=== PATIENT | female | born 1945 | race Caucasian/White ===

== ENCOUNTER 2019-07-06 20:10 | Emergency (ER) | payer MEDICARE, OTHER, SELFPAY ==
[2019-07-06 20:17] VITALS: BP 155/76; PULSE 81; RESP 16; TEMP 36.6; O2SAT 99; BMI 28.3
--- NOTE | 2019-07-06 20:41 | ED_ITS ---
HPI - Allergic Reaction General: Chief complaint: Allergic Reaction Stated complaint: ITCHY RASH Time Seen by Provider: 07/06/19 20:40 Source: patient Mode of arrival: ambulatory Limitations: no limitations History of Present Illness: HPI narrative: Patient completed a round of antibiotics yesterday of Cipro. Patient states today she started itching all over and now has started breaking out in the rash this evening. Patient has hives noted to her upper torso. Patient appears in mild distress. Patient has no breathing difficulty. MD complaint: hives Review of Systems General: Reports: 10 or more systems reviewed and unremarkable except in HPI and below Skin/Breast: Reports: pruritus PFSH ED PFSH: Social History Smoking and tobacco status: never smoked Physical Exam Const: COMMON NORMALS: no acute distress and patient oriented x3 GENERAL APPEARANCE: cooperative HENMT: COMMON NORMALS: normocephalic, TM's normal bilaterally and Normal external nose present HEAD & SCALP: normal to inspection and normocephalic NOSE: Normal external nose present TYMPANIC MEMBRANE: TM's normal bilaterally MOUTH: Normal oral and palatal mucosa present THROAT: posterior oropharynx normal Eye: GENERAL EYE: appearance normal, both eyes and all related structures Neck/C-Spine: COMMON NORMALS: full ROM Lymph: LYMPHATIC: no lymphadenopathy noted Chest: COMMONS NORMALS: normal inspection of the chest Resp: COMMON NORMALS: normal respiratory effort EFFORT & INSPECTION: Yes able to speak in complete sentences Cardio: COMMON NORMALS: regular rate and regular rhythm RATE: regular rate RHYTHM: regular rhythm GI: COMMON NORMALS: non-tender : COMMON NORMALS: Yes no CVA tenderness BLADDER/KIDNEY EXAM: Yes no CVA tenderness Back/Pelvis: COMMON NORMALS: no CVA tenderness and thoracic and lumbar spine normal to inspection Extremity: COMMON NORMALS: normal to inspection Neuro: COMMON NORMALS: patient oriented x3 and moves all extremities Psych: COMMON NORMALS: mental status grossly normal and cooperative Skin: RASHES: rashes noted (Patient has hives to the torso.) Course Vital Signs: Vital signs: Vital Signs Temperature 97.9 F 07/06/19 20:17 Pulse Rate 81 07/06/19 20:17 Respiratory Rate 16 07/06/19 20:17 Blood Pressure 155/76 07/06/19 20:17 Pulse Oximetry 99 07/06/19 20:17 MDM - Allergic Reaction MDM Narrative: Medical decision making narrative: Patient comes in today for complaints of itchy rash. On exam patient has urticaria to the torso. Respirations are even lungs are clear to auscultation. Vital signs were normal. Differential diagnosis includes anaphylaxis, allergic reaction, adverse drug effect. Patient was given Solu-Medrol and Benadryl with good results in the ER. Patient was monitored and showed continued improvement. Patient will be continued on steroids and cetirizine for control of symptoms for the next 3 to 5 days. Encourage plenty of fluids follow-up with primary care or return to the ER for worsening symptoms. Patient reported understanding. Discharge Plan Discharge Patient Disposition: Home, Self-Care Clinical Impression: Allergic reaction Qualifiers: Encounter type: initial encounter Qualified Code(s): T78.40XA - Allergy, unspecified, initial encounter Adverse reaction to drug Qualifiers: Encounter type: initial encounter Qualified Code(s): T50.905A - Adverse effect of unspecified drugs, medicaments and biological substances, initial encounter Condition: Stable Prescriptions: New cetirizine 5 mg tablet 5 mg PO BID Qty: 20 RF: 0 prednisone 20 mg tablet 40 mg PO DAILY Qty: 10 RF: 0 No Action losartan 100 mg tablet RF: 0 Synthroid 100 mcg tablet RF: 0 clobetasol 0.05 % cream TOPICAL RF: 0 Referrals: David Resendiz MD [Primary Care Provider] - Discharge Diet: Usual diet Discharge Activity: Increase activity as tolerated Patient Instructions: Antibiotic Medication Allergy (ED) Activity Restrictions/Additional Instructions: Drink plenty of water with medication. Activity as tolerated. Take cetirizine and prednisone as directed. Use Benadryl for breakthrough itching or rash. Follow-up with primary care in 1 week for recheck. Return to the ER for vomiting, difficulty breathing, or new concerns. Coding Level of Care Code ED Recycling Manager for [place] Exam Comprehensive
[2019-07-06] MEDS: diphenhydrAMINE 50 mg/mL SDV 1mL IM (21:06)
[2019-07-06 22:32] VITALS: BP 121/54; PULSE 71; RESP 16; O2SAT 97
== END 2019-07-06 22:35 | disposition home or self-care (01) ==
PROVIDERS: Emergency Provider Nurse Practitioner Family; Family Provider Family Medicine; PCP Family Medicine
DX: T78.40XA Allergy, unspecified, initial encounter (principal); T50.905A Adverse effect of unspecified drugs, medicaments and biological substances, initial encounter
CPT/HCPCS: 12345; 96372; 99281; 99283; J1200; J2930

== ENCOUNTER 2019-07-09 16:03 | Outpatient (CLI) | payer MEDICARE, OTHER, BC, SELFPAY ==
--- NOTE | 2019-07-09 16:15 | XR_ITS ---
WS: [id number] SCREENING DEXA SCAN THEVA CLINICAL INFORMATION: OSTEOPOROSIS COMPARISON: June 05, 2017 FINDINGS: The L1-L4 bone mineral density measures 1.239 g/cm2. This corresponds to a T score score of 0.5 and Z score of 2.0. Left femoral neck bone mineral density measures 0.874 g/cm2. This corresponds to a T score of -1.1 an d Z score of 0.6. Right femoral neck bone mineral density measures 0.913 g/cm2. This corresponds to a T score -0.8of an d Z score of 0.9. Mean femoral neck bone mineral density measures 0.894 g/cm2. This corresponds to a T score of -0.9 an d Z score of 0.7. XR/XR DEXA axial skeleton* [id number] IMPRESSION: Osteopenia in the femoral necks. Normal bone mineralization lumbar spine. Patient's FRAX calculated 10 year probability for major osteoporotic fracture i s 15.4 % and osteoporotic hip fracture is 4.6%. Bone mineral density in the lumbar spine has increased 1.2% since and decreased -1.9% in the femoral necks since 2017
== END 2019-07-09 16:04 | disposition home or self-care (01) ==
PROVIDERS: Family Provider Family Medicine; PCP Family Medicine; Visit Provider Family Medicine
DX: M81.0 Age-related osteoporosis without current pathological fracture (principal); M85.89 Other specified disorders of bone density and structure, multiple sites
CPT/HCPCS: 77080

== ENCOUNTER → 2019-08-19 13:28 | Outpatient (BNVA) | payer MEDICARE, OTHER, SELFPAY | PROVIDERS: Family Provider Family Medicine; PCP Family Medicine; Visit Provider Nurse Practitioner Family | DX: N30.20 Other chronic cystitis without hematuria (principal) | CPT/HCPCS: 81001 ==

== ENCOUNTER 2020-02-29 02:54 | Emergency (ER) | payer MEDICARE, OTHER, SELFPAY ==
[2020-02-29] VITALS (48 sets, daily range): BP systolic 94–165; BP diastolic 43–91; PULSE 47–91; RESP 13–37; TEMP 36.7; O2SAT 94–100; BMI 29.4
--- NOTE | 2020-02-29 03:28 | XRR_ITS ---
PROCEDURE INFORMATION: Exam: XR Chest, 1 View Exam date and time: 02/29/2020 3:30 AM Age: 74 years old Clinical indication: Chest wall pain; Prior surgery; Surgery type: Mastectomy; Patient HX: Right posterior chest and shoulder pain. ; Additional info: R side pain TECHNIQUE: Imaging protocol: XR of the chest Views: 1 view. COMPARISON: No relevant prior studies available. FINDINGS: Lungs: Unremarkable. No consolidation. Pleural space: Unremarkable. No pleural effusion. No pneumothorax. Heart/Mediastinum: Unremarkable. No cardiomegaly. Bones/joints: Unremarkable. XR/XR chest 1V portable [id number] IMPRESSION: No acute findings.
--- NOTE | 2020-02-29 03:29 | ECG_ITS ---
[facility] Test Date: 2020-02-29 Pat Name: Anish Dockery Department: Room: Gender: Female Roving Frame Tender: : 1945 Requested By: Jared Ibarra Order Number: [id number] Araceli MD: Mima Norton M.D. Measurements Intervals [place] Rate: 68 P: 95 AR: 151 QRS: -11 QRSD: 109 T: 48 QT: 397 QTc: 423 Interpretive Statements SINUS RHYTHM MINIMAL VOLTAGE CRITERIA FOR LVH, CONSIDER NORMAL VARIANT [MEETS CRITERIA IN ONE OF: R(aVL), S(V1), R(V5), R(V5/V6)+S(V1)] No previous ECG available for comparison Electronically Signed On 03-01-2020 9:16:47 LITHOGRAPHIC PLATE MAKER by Mima Norton M.D. [id number]
--- NOTE | 2020-02-29 03:29 | W.ED.EXTPRO ---
HPI - Extremity Problem General: Chief complaint: Extremity Problem,Nontraumatic Stated complaint: severe right shoulder pain Time Seen by Provider: 02/29/20 03:10 History of Present Illness: HPI Narrative: 74-year-old female presenting with right shoulder pain worsening over about a week. She says the pain comes and goes, but episodes are becoming more severe and more frequent. She says that she did not injure her shoulder in any way. Movement does not make the pain worse. Nothing she has tried is made it better. She is not short of breath. Not coughing. No fever. MD Complaint: extremity pain Onset (ago): day(s) Pain Consistency: intermittent Location: right and upper extremity Quality: stabbing and aching Radiation: none Relieving factors: nothing Exacerbating factors: nothing Associated symptoms: Reports chest pain; Deny fever(s) or rash Review of Systems Const: Denies: fever(s), chills or body aches ENMT: Denies: throat pain, hoarseness or nasal congestion Card: Reports: chest pain; Denies: palpitations or irregular heart rhythm Resp: Denies: dyspnea, productive cough, non-productive cough or wheezing GI: Reports: nausea; Denies: abdominal pain, vomiting or hematemesis : Denies: difficulty voiding or urinary urgency Musc: Reports: extremity pain; Denies: neck pain or back pain Skin/Breast: Reports: pruritus; Denies: rash, erythema or skin tenderness Neuro: Denies: numbness in extremities or weakness in extremities Psych: Reports: anxiety Endo: Denies: polyuria or excessive sweating PFS ED PFSH: Medical History (Updated 02/29/20 @ 05:58 by Jared Crawford DO) Breast cancer Chronic cystitis HTN (hypertension) Recurrent UTI Thyroid disorder Surgical History Hx of appendectomy Hx of bilateral mastectomy Hx of cholecystectomy Hx of thyroidectomy Family History Mother Diabetes Father CAD (coronary artery disease) Other Cancer Social History Smoking and tobacco status: never smoked Alcohol intake: never Adopted: No Caregiver/support person: No Lives independently: No Household members: spouse Marital status: Current occupational status: retired History of recent travel: No Physical Exam Const: COMMON NORMALS: patient oriented x3 and well nourished Eye: COMMON NORMALS: Equal, round and reactive pupils present and EOMs intact bilaterally PUPIL: Yes Equal, round and reactive pupils present Chest: COMMONS NORMALS: normal inspection of the chest Resp: COMMON NORMALS: normal respiratory effort, No retractions, No use of accessory muscles, clear to auscultation bilaterally and percussion normal AUSCULTATION: clear to auscultation bilaterally PERCUSSION: percussion normal Cardio: COMMON NORMALS: regular rate and regular rhythm RATE: regular rate RHYTHM: regular rhythm Extremity: COMMON NORMALS: normal to inspection NARRATIVE EXTREMITY EXAM: Examined shoulder on the right reveals flexion 140 degrees, abduction to 130 degrees. These are painless. Empty can test is negative. Full can test is negative. [place]'s test is negative. There is minimal tenderness to palpation over the suprascapular nerve, no joint line or cuff footprint tenderness. Neuro: COMMON NORMALS: patient oriented x3 Course Vital Signs: Vital signs: Vital Signs Temperature 98.1 F 02/29/20 03:02 Pulse Rate 63 02/29/20 06:05 Respiratory Rate 17 02/29/20 06:05 Blood Pressure 128/91 02/29/20 06:05 Pulse Oximetry 100 02/29/20 06:05 MDM - Extremity (Nontraumatic) MDM Narrative: Medical decision making narrative: 74-year-old lady with nonreproducible right-sided shoulder/scapular pain. She does not have a cough, is not short of breath, does not have a fever. Her white blood cell count is 5.7. Hemoglobin 13.1. EKG shows a normal sinus rhythm with a normal axis rate of 65. Second EKG is the same. Electrolytes are normal. Troponin is 9. Her D-dimer is significantly elevated at 1300. CTA of the chest is pending. X-ray was read as normal. She had a period of bradycardia and hypotension directly following administration of 0.5 mg of Dilaudid. She is recovered from this. She does have some mild nausea that remains. Lab Data: Labs: Lab Results 02/29/20 02/29/20 02/29/20 Range/Units 03:35 03:41 03:41 WBC 5.7 (4.0-10.0) 10^3/ uL RBC 4.35 (4.1-5.3) 10^6/u L Hgb 13.1 (11.5-15.3) g/dL Hct 40.7 (37.0-47.0) % MCV 93.6 (81-99) fL MCH 30.1 (28.0-34.0) pg MCHC 32.2 (30.0-36.0) g/dL RDW 13.2 (12.1-15.1) % Plt Count 185 (130-400) 10^3/c mm MPV 10.6 H (7.4-10.4) fL Neut % (Auto) 45.2 % Lymph % (Auto) 40.0 % [place] % (Auto) 11.9 % Eos % (Auto) 2.4 % Baso % (Auto) 0.2 % Neut # (Auto) 2.59 (1.8-7.7) 10^3/u L Lymph # (Auto) 2.3 (0.8-4.8) 10^3/u L [place] # (Auto) 0.7 (0.2-0.9) 10^3/u L Eos # (Auto) 0.1 (0.0-0.8) 10^3/u L Baso # (Auto) 0.0 (0.0-0.1) 10^3/u L Nucleated RBC % (a uto) 0 % Nucleated RBCs # 0.0 /100WBC D-Dimer 1.35 H (0-0.59) ug/mIFE U Sodium (136-145) mmol/L Potassium (3.5-5.1) mmol/L Chloride (98-107) mmol/L Carbon Dioxide (22-29) mmol/L Anion Gap (5-19) BUN (8-23) mg/dL Creatinine (0.5-0.9) mg/dL GFR Calculation Glucose (65-115) mg/dL Calculated Osmolal ity (285-295) mOsm/k g Calcium (8.5-10.5) mg/dL Total Bilirubin (0.15-1.2) mg/dL AST (0-32) U/L ALT (0-33) U/L Alkaline Phosphata se (35-105) IU/L Creatine Kinase (26-192) U/L Troponin T Baselin e (0-10) ng/L Troponin T 120 Min hughes (0-10) ng/L Delta Troponin T (0-10) ABS# C-Reactive Protein (0.0-4.9) mg/L Total Protein (6.6-8.7) g/dL Albumin (3.5-5.2) g/dL Globulin (1.3-4.6) g/dL Lipase (13-60) U/L Procalcitonin (0-0.5) ng/mL Urine Color Yellow (Yellow) Urine Appearance Clear (CLEAR) Urine pH 7 (5-7) Ur Specific Gravit y 1.005 (1.005-1.030) Urine Protein Neg (Negative) Urine Glucose (UA) Norm (Normal) Urine Ketones Negative (Negative) Urine Blood Neg (Negative) Urine Nitrate Negative (Negative) Urine Bilirubin Neg (Negative) Urine Urobilinogen Norm (Negative) mg/dL Ur Leukocyte Stephanie ase Negative (Negative) 02/29/20 02/29/20 02/29/20 Range/Units 03:41 03:41 05:35 WBC (4.0-10.0) 10^3/ uL RBC (4.1-5.3) 10^6/u L Hgb (11.5-15.3) g/dL Hct (37.0-47.0) % MCV (81-99) fL MCH (28.0-34.0) pg MCHC (30.0-36.0) g/dL RDW (12.1-15.1) % Plt Count (130-400) 10^3/c mm MPV (7.4-10.4) fL Neut % (Auto) % Lymph % (Auto) % [place] % (Auto) % Eos % (Auto) % Baso % (Auto) % Neut # (Auto) (1.8-7.7) 10^3/u L Lymph # (Auto) (0.8-4.8) 10^3/u L [place] # (Auto) (0.2-0.9) 10^3/u L Eos # (Auto) (0.0-0.8) 10^3/u L Baso # (Auto) (0.0-0.1) 10^3/u L Nucleated RBC % (a uto) % Nucleated RBCs # /100WBC D-Dimer (0-0.59) ug/mIFE U Sodium 138 (136-145) mmol/L Potassium 3.5 (3.5-5.1) mmol/L Chloride 105 (98-107) mmol/L Carbon Dioxide 24 (22-29) mmol/L Anion Gap 12.5 (5-19) BUN 17 (8-23) mg/dL Creatinine 0.8 (0.5-0.9) mg/dL GFR Calculation Not Reportable Glucose 114 (65-115) mg/dL Calculated Osmolal ity 288 (285-295) mOsm/k g Calcium 9.0 (8.5-10.5) mg/dL Total Bilirubin 1.1 (0.15-1.2) mg/dL AST 25 (0-32) U/L ALT 18 (0-33) U/L Alkaline Phosphata se 93 (35-105) IU/L Creatine Kinase 40 (26-192) U/L Troponin T Baselin e 9 (0-10) ng/L Troponin T 120 Min hughes 8.41 (0-10) ng/L Delta Troponin T -0.59 L (0-10) ABS# C-Reactive Protein 0.6 (0.0-4.9) mg/L Total Protein 6.7 (6.6-8.7) g/dL Albumin 3.7 (3.5-5.2) g/dL Globulin 3.0 (1.3-4.6) g/dL Lipase 28 (13-60) U/L Procalcitonin 0.04 (0-0.5) ng/mL Urine Color (Yellow) Urine Appearance (CLEAR) Urine pH (5-7) Ur Specific Gravit y (1.005-1.030) Urine Protein (Negative) Urine Glucose (UA) (Normal) Urine Ketones (Negative) Urine Blood (Negative) Urine Nitrate (Negative) Urine Bilirubin (Negative) Urine Urobilinogen (Negative) mg/dL Ur Leukocyte Stephanie ase (Negative) Discharge Plan Discharge Patient Disposition: Home Clinical Impression: Acute pain of right shoulder Condition: Stable Prescriptions: [place] 5-325 mg tablet 1 tab PO Q6H Qty: 10 RF: 0 Medrol (Mike) 4 mg tablets,dose pack See Rx Instructions .ROUTE .COMPLEX Qty: 21 RF: 0 No Action cholecalciferol (vitamin D3) 50 mcg (2,000 unit) capsule 50 mcg PO DAILY RF: 0 hydrochlorothiazide 12.5 mg tablet 12.5 mg PO DAILY RF: 0 cefuroxime axetil 500 mg tablet 500 mg PO BID Qty: 28 RF: 3 losartan 100 mg tablet RF: 0 Synthroid 100 mcg tablet RF: 0 clobetasol 0.05 % cream TOPICAL RF: 0 cetirizine 5 mg tablet 5 mg PO BID Qty: 20 RF: 0 Discharge Orders: Discharge ED (Routine); Ordered 02/29/20 Ordered By: Jared Crawford Referrals: David Resendiz MD [Primary Care Provider] - 4-7 days Discharge Diet: Advance as tolerated Discharge Activity: Increase activity as tolerated Patient Instructions: Shoulder Sprain (ED), Arthralgia (ED) Activity Restrictions/Additional Instructions: Return for worsening pain despite treatment, shortness of breath, cough, fever greater than 100, other concerning symptoms. Coding Level of Care Code ED Business Banking Sales Assistant for Chg Fwd Exam Detailed
[2020-02-29 03:47] LABS: Basophils % 0.2 %; Eosinophils # 0.1 10^3/uL (0.0-0.8); Eosinophils % 2.4 %; Hematocrit 40.7 % (37.0-47.0); Hemoglobin 13.1 g/dL (11.5-15.3); Lymphocytes # 2.3 10^3/uL (0.8-4.8); Mean Corpuscular HGB Conc 32.2 g/dL (30.0-36.0); Mean Corpuscular Hemoglobin 30.1 pg (28.0-34.0); Mean Corpuscular Volume 93.6 fL (81-99); Mean Platelet Volume 10.6 fL (7.4-10.4); Monocytes # 0.7 10^3/uL (0.2-0.9); Monocytes % 11.9 %; Neutrophils # 2.59 10^3/uL (1.8-7.7); Neutrophils % 45.2 %; Nucleated Red Blood Cells % 0 %; Platelet Count 185 10^3/cmm (130-400); Red Blood Count 4.35 10^6/uL (4.1-5.3); Red Cell Distribution Width 13.2 % (12.1-15.1); White Blood Count 5.7 10^3/uL (4.0-10.0)
[2020-02-29 04:01] LABS: D Dimer 1.35 ug/mIFEU (0-0.59)
[2020-02-29 04:10] LABS: Troponin(5th) Baseline 9 ng/L (0-10)
[2020-02-29 04:17] LABS: Procalcitonin 0.04 ng/mL (0-0.5)
[2020-02-29 04:18] LABS: Add Urine Microscopic? NO
[2020-02-29] MEDS: HYDROmorphone 1 mg/mL INJ 1 mL 0.5 MG IVP (04:26)
[2020-02-29] MEDS: ondansetron 2 mg/ML SDV 2 mL 4 MG IVP ×2 (04:26→05:50)
[2020-02-29 04:29] LABS: Alanine Aminotransferase 18 U/L (0-33); Albumin Level 3.7 g/dL (3.5-5.2); Alkaline Phosphatase 93 IU/L (35-105); Anion Gap 12.5 (5-19); Aspartate Amino Transferase 25 U/L (0-32); Blood Urea Nitrogen 17 mg/dL (8-23); C Reactive Protein 0.6 mg/L (0.0-4.9); Carbon Dioxide 24 mmol/L (22-29); Chloride 105 mmol/L (98-107); Creatine Phosphokinase 40 U/L (26-192); Glucose 114 mg/dL (65-115); Lipase 28 U/L (13-60); Osmolality Calculated 288 mOsm/kg (285-295); Potassium 3.5 mmol/L (3.5-5.1); Sodium 138 mmol/L (136-145); Total Bilirubin 1.1 mg/dL (0.15-1.2); Total Protein 6.7 g/dL (6.6-8.7)
[2020-02-29 04:34] LABS: Bilirubin Urine Neg (Negative); Blood Urine Neg (Negative); Glucose Urine UA Norm (Normal); Ketones Urine Negative (Negative); Leukocyte Esterase Urine Negative (Negative); Nitrate Urine Negative (Negative); Protein Urine Neg (Negative); Specific Gravity, Urine 1.005 (1.005-1.030); Urine Appearance Clear (CLEAR); Urine Color Yellow (Yellow); Urobilinogen Urine Norm (Negative); pH Urine 7 (5-7)
[2020-02-29] MEDS: sodium chloride 0.9% 1,000 ML 999 ML IV (04:40)
--- NOTE | 2020-02-29 04:45 | PC.NURSE ---
Dilaudid mixed with 10 ml NS pushed over 4-5 minutes. Pt began to hyperventilate 2-3 minutes post administration. Pt very anxious. Reported feeling very weak in the legs. Pt became bradycardic at that time jessica to 47 beats/min. Pt BP 94/43. Dr riggs notified. Pt placed in trendelenburg. NS bolus started. Cool compress provided. VS now heart rate 66 NSR, BP 130/56, res 28, pulse ox 100 RA. Pt alert, reports decrease in anxiety at this time. Pt bed in normal position with head slightly elevated.
--- NOTE | 2020-02-29 04:56 | CTR_ITS ---
PROCEDURE INFORMATION: Exam: CT Angiography Chest With Contrast Exam date and time: 02/29/2020 4:57 AM Age: 74 years old Clinical indication: Chest wall pain; Prior surgery; Surgery type: Thyroidectomy. Mastectomy. Gallbladder. ; Patient HX: RT posterior chest and shoulder pain. ; Additional info: Chest pain TECHNIQUE: Imaging protocol: Computed tomographic angiography of the chest with intravenous contrast. 3D rendering (Not supervised by radiologist): MIP and/or 3D reconstructed images were created by the technologist. Radiation optimization: All CT scans at this facility use at least one of these dose optimization techniques: automated exposure control; mA and/or kV adjustment per patient size (includes targeted exams where dose is matched to clinical indication); or iterative reconstruction. Contrast material: OMNI 350; Contrast volume: 71 ml; Contrast route: INTRAVENOUS (IV); COMPARISON: CR XR chest 1V portable [id number] 02/29/2020 3:33 AM RADIATION DOSE METRICS: Total DLP (mGy-cm): 548.13 FINDINGS: Pulmonary arteries: No central pulmonary embolus. Streak artifacts from dense venous contrast through the right upper lobe central pulmonary arteries, but no suggestion of a segmental or subsegmental embolus. Aorta: Atherosclerosis. No aortic aneurysm or suggestion of dissection. Lungs: Calcified granulomata in the lungs. No ground-glass opacities or consolidation. Pleural space: No pleural fluid or pneumothorax. Heart: Cardiac prominence. No pericardial effusion. Mediastinal space: Small hiatal hernia. Lymph nodes: Borderline size of 1 mediastinal node. No enlarged nodes elsewhere. Liver: 5 mm low-density focus in the superior margin of the dome of the liver, too small for characterization. Gallbladder and bile ducts: Absence of the gallbladder likely accounting for the mild biliary ductal prominence. Stomach and bowel: Several diverticula of the splenic flexure. Bones/joints: Old compression fractures. Degeneration of several discs. Soft tissues: Bilateral mastectomies. CT/CT angio chest PE protcl [id number] IMPRESSION: 1. No apparent pulmonary embolus. 2. Bilateral mastectomies. Small hiatal hernia. Other findings detailed above. Radiation Dose CTDIVOL = (mGy): DLP = 548.13 (mGy-cm)
[2020-02-29] MEDS: iohexol 350 mg/mL 100 mL Btl IV (05:20)
--- NOTE | 2020-02-29 05:29 | ECG_ITS ---
[facility] Test Date: 2020-02-29 Pat Name: Anish Dockery Department: Room: Gender: Female Break Out Man: : 1945 Requested By: Jared Ibarra Order Number: [id number] Araceli MD: Mima Norton M.D. Measurements Intervals [place] Rate: 75 P: 91 AL: 171 QRS: -8 QRSD: 99 T: 41 QT: 402 QTc: 451 Interpretive Statements SINUS RHYTHM Compared to ECG 02/29/2020 03:24:35 No significant changes Electronically Signed On 03-01-2020 20:26:44 WIRELESS NETWORK ENGINEER by Mima Norton M.D. [id number]
[2020-02-29] MEDS: ketorolac 30 mg/mL INJ 15 MG IVP (06:22)
[2020-02-29 06:23] LABS: Troponin 5 2HR 8.41 ng/L (0-10)
[2020-02-29 06:24] LABS: Troponin 5 2HR Delta -0.59 ABS# (0-10)
== END 2020-02-29 06:58 | disposition home or self-care (01) ==
PROVIDERS: Emergency Provider Emergency Medicine; PCP Family Medicine
DX: M25.511 Pain in right shoulder (principal); Z85.3 Personal history of malignant neoplasm of breast; I10 Essential (primary) hypertension; E07.9 Disorder of thyroid, unspecified
CPT/HCPCS: 12345; 71045; 71275; 80053; 81003; 82550; 83690; 84145; 84484; 85025; 85378; 86140; 93005; 96361; 96374; 96375; 96376; 99284; J1170; J1885; J2405; J7030; Q9967

== ENCOUNTER 2020-05-11 13:11 | Emergency (ER) | payer MEDICARE, OTHER, SELFPAY ==
[2020-05-11 13:17] VITALS: BP 156/85; PULSE 96; RESP 32; TEMP 36.6; O2SAT 98; BMI 28.3
[2020-05-11 13:49] LABS: ABG PCO2 22.3 mmHg (35-45); Alveolar-Arterial Oxygen Gradi 9.7 mmHg (5-10); Arterial Blood Gas Hematocrit 43.1 % (37-47); Base Excess ABG 1.7 mmol/L (-2.0-2.0); Blood Gas Allen Test Pos; Blood Gas Operator Identificat CAK; Blood Gas Sample Site Radial, left; Blood Gas Sample Type Arterial; Carboxyhemoglobin 0.7 %THgb (0.4-20.1); HCO3 ABG 21.5 mmol/L (22-26); HGB O2 Sat 90.8 % (95-100); Ionized Calcium Level - ABG 1.2 mmol/L (1.1-1.4); Methemoglobin 0.7 % (0.4-1.5); Oxygen Device ROOM AIR; Oxygen Saturation ABG 92.1; PO2 ABG 46.8 mmHg (80.0-100.0)
--- NOTE | 2020-05-11 13:51 | CT_ITS ---
WS: [id number] CT HEAD NONCONTRAST HISTORY: dizziness TECHNIQUE: Contiguous axial imaging performed through the brain in 2.5 mm imaging. Bone and soft tiss ue windows. Sagittal and coronal reformats reviewed. All CT scans at [facility] use at ast one of these dose optimization techniques: automated exposure control; mA and/or kV adjustment pe r patient size (includes targeted exams where dose is matched to clinical indication); or iterative r econstruction. DLP: 393.22 mGy.cm COMPARISON: 09/10/2010 Quality of examination is limited due to severe kyphosis of the patient. No large areas of hemorrhage or edema. Small extra-axial hematomas would be obscured. Mild atrophy and mild chronic microvascular ischemic disease. Ventricles: Normal size with no hydrocephalus. Paranasal sinuses: As visualized are clear. Mastoid air cells: Well pneumatized. Calvarium and scalp: Skull is intact with no soft tissue edema or swelling. CT/CT head wo con* [id number] IMPRESSION: 1. Quality of this examination is limited by kyphosis. No acute intracranial h emorrhage. 2. Mild atrophy.
--- NOTE | 2020-05-11 13:52 | ECG_ITS ---
[facility] Test Date: 2020-05-11 Pat Name: Anish Dockery Department: Room: Gender: Female Tester Electronic Scale: : 1945 Requested By: Vin Colon Order Number: [id number] Araceli MD: Nicolas Romero M.D. Measurements Intervals [place] Rate: 72 P: 76 PA: 166 QRS: 7 QRSD: 98 T: 47 QT: 398 QTc: 437 Interpretive Statements SINUS RHYTHM Compared to ECG 02/29/2020 05:39:39 No significant changes Electronically Signed On 05-11-2020 19:13:49 CDT by Nicolas Romero M.D. [id number]
--- NOTE | 2020-05-11 13:55 | W.ED.NEUROSD ---
HPI - Neuro Symptoms/Deficit General: Chief Complaint: Neuro Symptoms/Deficit Stated Complaint: HAND NUMBNESS/ shaky Time Seen by Provider: 05/11/20 13:27 History of Present Illness: HPI Narrative: 75-year-old female who comes in complaining of numbness bilaterally in the hands and shaking. She was driving it began to get these symptoms she has a history of anxiety she is tachypneic when I arrived in the room is also complaining of dizziness. She denies any chest pain. She has a difficult time relating her story due to her tachypnea. She states she is anxious because there is some health issues in her family particular with her . Onset (ago): minute(s) Location: left arm and right arm Severity: mild Quality: tingling Relieving factors: none Exacerbating factors: none Context: sudden onset On Anticoagulants: No Associated symptoms: Reports nausea, short of breath and tingling; Deny chest pain or malaise Treatments Prior to Arrival: none Review of Systems Const: Denies: fever(s), chills, body aches, change in appetite, fatigue or malaise ENMT: Denies: throat pain, ear or mastoid pain, nasal discharge or nasal congestion Card: Denies: chest pain, edema, dyspnea on exertion or orthopnea Resp: Denies: dyspnea, productive cough or non-productive cough GI: Reports: nausea : Denies: flank pain, difficulty voiding, dysuria, urinary frequency or urinary urgency Skin/Breast: Denies: rash or pruritus PFSH ED PFSH: Medical History (Updated 05/11/20 @ 16:10 by Vin Alvares DO) Breast cancer Chronic cystitis HTN (hypertension) Recurrent UTI Thyroid disorder Surgical History Hx of appendectomy Hx of bilateral mastectomy Hx of cholecystectomy Hx of thyroidectomy Family History Mother Diabetes Father CAD (coronary artery disease) Other Cancer Social History Smoking and tobacco status: never smoked Alcohol intake: never Adopted: No Caregiver/support person: No Lives independently: No Household members: spouse Marital status: Current occupational status: retired History of recent travel: No Physical Exam Const: COMMON NORMALS: no acute distress GENERAL APPEARANCE: cooperative ORIENTATION/CONSCIOUSNESS: Yes awake, Yes oriented to person, Yes oriented to place and Yes oriented to time HENMT: COMMON NORMALS: normocephalic, atraumatic, hearing grossly normal bilaterally, external ears normal, EAC's normal, TM's normal bilaterally, Normal nasal mucous membranes and turbinates present, moist oral mucous membranes and oropharynx normal HEAD & SCALP: normocephalic and atraumatic NOSE: Normal nasal mucous membranes and turbinates present EXTERNAL EAR: Yes external ears normal EXTERNAL AUDITORY CANAL: EAC's normal TYMPANIC MEMBRANE: TM's normal bilaterally Eye: COMMON NORMALS: Equal, round and reactive pupils present, EOMs intact bilaterally, conjunctivae normal and no scleral icterus CONJUNCTIVA: Yes conjunctivae normal PUPIL: Yes Equal, round and reactive pupils present Neck/C-Spine: COMMON NORMALS: full ROM, no lymphadenopathy, supple and no JVD Lymph: LYMPHATIC: no lymphadenopathy noted and no lymphedema noted Resp: COMMON NORMALS: No retractions, No use of accessory muscles and clear to auscultation bilaterally EFFORT & INSPECTION: Yes tachypneic AUSCULTATION: clear to auscultation bilaterally Cardio: COMMON NORMALS: no JVD, regular rate, regular rhythm and No murmurs present (Cardio) RATE: regular rate RHYTHM: regular rhythm GI: COMMON NORMALS: Soft to palpation and No hepatosplenomegaly present AUSCULTATION: Yes normoactive bowel sounds PALPATION: Yes Soft to palpation, No Tenderness to palpation present (GI), No Guarding due to palpation present (GI) and Yes No hepatosplenomegaly present Extremity: COMMON NORMALS: normal to inspection, capillary refill normal, no clubbing, cyanosis or edema, no calf tenderness and no pedal edema Neuro: SENSORIUM/ORIENTATION: Yes oriented to person, Yes oriented to place and Yes oriented to time Psych: SPEECH: Yes rapid MOOD & AFFECT: Yes anxious Skin: COMMON NORMALS: no rashes or lesions noted GENERAL SKIN EXAM: no rashes or lesions noted Course Vital Signs: Vital signs: Vital Signs Temperature 97.9 F 05/11/20 13:17 Pulse Rate 76 05/11/20 16:57 Respiratory Rate 27 H 05/11/20 16:57 Blood Pressure 136/86 05/11/20 16:57 Pulse Oximetry 97 05/11/20 16:57 MDM - Neuro Symptoms/Deficit MDM Narrative: Medical decision making narrative: Patient was hyperventilating significantly when she came in see his blood gas. We will ahead and discharge her home gave her hydroxyzine to use as needed all her symptoms have resolved at this point. Lab Data: Attestation: I reviewed the patient's lab results. Labs: Lab Results 05/11/20 05/11/20 05/11/20 Range/Units 13:37 14:42 14:42 WBC 5.8 (4.0-10.0) 10^3/ uL RBC 4.26 (4.1-5.3) 10^6/u L Hgb 12.9 (11.5-15.3) g/dL Hct 41.3 (37.0-47.0) % MCV 96.9 (81-99) fL MCH 30.3 (28.0-34.0) pg MCHC 31.2 (30.0-36.0) g/dL RDW 13.1 (12.1-15.1) % Plt Count 174 (130-400) 10^3/c mm MPV 10.5 H (7.4-10.4) fL Neut % (Auto) 65.8 % Lymph % (Auto) 22.3 % Bollinger % (Auto) 10.4 % Eos % (Auto) 1.0 % Baso % (Auto) 0.3 % Neut # (Auto) 3.80 (1.8-7.7) 10^3/u L Lymph # (Auto) 1.3 (0.8-4.8) 10^3/u L Bollinger # (Auto) 0.6 (0.2-0.9) 10^3/u L Eos # (Auto) 0.1 (0.0-0.8) 10^3/u L Baso # (Auto) 0.0 (0.0-0.1) 10^3/u L Nucleated RBC % (a uto) 0 % Nucleated RBCs # 0.0 /100WBC Specimen Type Arterial Sample Site Radial, left ABG pH 7.59 H* (7.35-7.45) ABG pCO2 22.3 L (35-45) mmHg ABG pO2 46.8 L (80.0-100.0) mmH g ABG HCO3 21.5 L (22-26) mmol/L ABG O2 Saturation 92.1 ABG Base Excess 1.7 (-2.0-2.0) mmol/ L Trey Test Pos A-a O2 Gradient 9.7 (5-10) mmHg Hematocrit 43.1 (37-47) % Hgb O2 Saturation 90.8 L (95-100) % Carboxyhemoglobin 0.7 (0.4-20.1) %THgb Methemoglobin 0.7 (0.4-1.5) % Total Hemoglobin 14.0 (12-16) g/dL Sodium 139.0 138 (131-143) mmol/L Potassium 3.0 L 3.0 L (3.5-5.0) mmol/L Glucose 118.0 H 117 H (70-115) mg/dL Ionized Calcium 1.2 (1.1-1.4) mmol/L O2 Delivery Device Room air FiO2 21.0 % Manager Sterile ID Cak Chloride 102 (98-107) mmol/L Carbon Dioxide 23 (22-29) mmol/L Anion Gap 16.0 (5-19) BUN 14 (8-23) mg/dL Creatinine 0.8 (0.5-0.9) mg/dL GFR Calculation Not Reportable Calculated Osmolal ity 288 (285-295) mOsm/k g Calcium 9.0 (8.5-10.5) mg/dL Total Bilirubin 1.1 (0.15-1.2) mg/dL AST 19 (0-32) U/L ALT 14 (0-33) U/L Alkaline Phosphata se 80 (35-105) IU/L Troponin T Baselin e (0-10) ng/L Total Protein 6.8 (6.6-8.7) g/dL Albumin 3.6 (3.5-5.2) g/dL Globulin 3.2 (1.3-4.6) g/dL Urine Color (Yellow) Urine Appearance (CLEAR) Urine pH (5-7) Ur Specific Gravit y (1.005-1.030) Urine Protein (Negative) Urine Glucose (UA) (Normal) Urine Ketones (Negative) Urine Blood (Negative) Urine Nitrate (Negative) Urine Bilirubin (Negative) Prot Sulfosalicyli c Acd (Negative) Urine Urobilinogen (Negative) mg/dL Ur Leukocyte Stephanie ase (Negative) 05/11/20 05/11/20 Range/Units 14:42 15:02 WBC (4.0-10.0) 10^3/ uL RBC (4.1-5.3) 10^6/u L Hgb (11.5-15.3) g/dL Hct (37.0-47.0) % MCV (81-99) fL MCH (28.0-34.0) pg MCHC (30.0-36.0) g/dL RDW (12.1-15.1) % Plt Count (130-400) 10^3/c mm MPV (7.4-10.4) fL Neut % (Auto) % Lymph % (Auto) % Bollinger % (Auto) % Eos % (Auto) % Baso % (Auto) % Neut # (Auto) (1.8-7.7) 10^3/u L Lymph # (Auto) (0.8-4.8) 10^3/u L Bollinger # (Auto) (0.2-0.9) 10^3/u L Eos # (Auto) (0.0-0.8) 10^3/u L Baso # (Auto) (0.0-0.1) 10^3/u L Nucleated RBC % (a uto) % Nucleated RBCs # /100WBC Specimen Type Sample Site ABG pH (7.35-7.45) ABG pCO2 (35-45) mmHg ABG pO2 (80.0-100.0) mmH g ABG HCO3 (22-26) mmol/L ABG O2 Saturation ABG Base Excess (-2.0-2.0) mmol/ L Trey Test A-a O2 Gradient (5-10) mmHg Hematocrit (37-47) % Hgb O2 Saturation (95-100) % Carboxyhemoglobin (0.4-20.1) %THgb Methemoglobin (0.4-1.5) % Total Hemoglobin (12-16) g/dL Sodium (131-143) mmol/L Potassium (3.5-5.0) mmol/L Glucose (70-115) mg/dL Ionized Calcium (1.1-1.4) mmol/L O2 Delivery Device FiO2 % Manager Sterile ID Chloride (98-107) mmol/L Carbon Dioxide (22-29) mmol/L Anion Gap (5-19) BUN (8-23) mg/dL Creatinine (0.5-0.9) mg/dL GFR Calculation Calculated Osmolal ity (285-295) mOsm/k g Calcium (8.5-10.5) mg/dL Total Bilirubin (0.15-1.2) mg/dL AST (0-32) U/L ALT (0-33) U/L Alkaline Phosphata se (35-105) IU/L Troponin T Baselin e 7 (0-10) ng/L Total Protein (6.6-8.7) g/dL Albumin (3.5-5.2) g/dL Globulin (1.3-4.6) g/dL Urine Color Straw (Yellow) Urine Appearance Clear (CLEAR) Urine pH 8 H (5-7) Ur Specific Gravit y 1.010 (1.005-1.030) Urine Protein Neg (Negative) Urine Glucose (UA) Norm (Normal) Urine Ketones Negative (Negative) Urine Blood Neg (Negative) Urine Nitrate Negative (Negative) Urine Bilirubin Neg (Negative) Prot Sulfosalicyli c Acd Negative (Negative) Urine Urobilinogen Norm (Negative) mg/dL Ur Leukocyte Stephanie ase Negative (Negative) Discharge Plan Discharge Patient Disposition: Home Clinical Impression: Acute hyperventilation syndrome, Anxiety Condition: Stable Prescriptions: New hydroxyzine HCl 25 mg tablet 25 mg PO QID PRN (Reason: prn anxiety) Qty: 20 RF: 0 No Action cholecalciferol (vitamin D3) 50 mcg (2,000 unit) capsule 50 mcg PO DAILY RF: 0 hydrochlorothiazide 12.5 mg tablet 12.5 mg PO DAILY RF: 0 cefuroxime axetil 500 mg tablet 500 mg PO BID Qty: 28 RF: 3 losartan 100 mg tablet RF: 0 Synthroid 100 mcg tablet RF: 0 clobetasol 0.05 % cream TOPICAL RF: 0 cetirizine 5 mg tablet 5 mg PO BID Qty: 20 RF: 0 Newberry 5-325 mg tablet 1 tab PO Q6H Qty: 10 RF: 0 Medrol (Mike) 4 mg tablets,dose pack See Rx Instructions .ROUTE .COMPLEX Qty: 21 RF: 0 Discharge Orders: Discharge ED (Routine); Ordered 05/11/20 Ordered By: Vin Alvares Referrals: David Resendiz MD [Primary Care Provider] - Discharge Diet: Usual diet Discharge Activity: Increase activity as tolerated Patient Instructions: Opioid Safety Coding Level of Care Code ED 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
[2020-05-11] MEDS: LORazepam 2 mg/mL INJ 1 mL IVP (14:41)
[2020-05-11 14:44] VITALS: BP 147/79; PULSE 80; RESP 29; O2SAT 100
[2020-05-11 14:46] LABS: Basophils % 0.3 %; Eosinophils # 0.1 10^3/uL (0.0-0.8); Hematocrit 41.3 % (37.0-47.0); Hemoglobin 12.9 g/dL (11.5-15.3); Lymphocytes # 1.3 10^3/uL (0.8-4.8); Lymphocytes % 22.3 %; Mean Corpuscular HGB Conc 31.2 g/dL (30.0-36.0); Mean Corpuscular Hemoglobin 30.3 pg (28.0-34.0); Mean Corpuscular Volume 96.9 fL (81-99); Mean Platelet Volume 10.5 fL (7.4-10.4); Monocytes # 0.6 10^3/uL (0.2-0.9); Monocytes % 10.4 %; Neutrophils % 65.8 %; Nucleated Red Blood Cells % 0 %; Platelet Count 174 10^3/cmm (130-400); Red Blood Count 4.26 10^6/uL (4.1-5.3); Red Cell Distribution Width 13.1 % (12.1-15.1); White Blood Count 5.8 10^3/uL (4.0-10.0)
[2020-05-11 15:16] LABS: Alanine Aminotransferase 14 U/L (0-33); Albumin Level 3.6 g/dL (3.5-5.2); Alkaline Phosphatase 80 IU/L (35-105); Aspartate Amino Transferase 19 U/L (0-32); Blood Urea Nitrogen 14 mg/dL (8-23); Carbon Dioxide 23 mmol/L (22-29); Chloride 102 mmol/L (98-107); Creatinine Clr Calc Pharmacy 56.2182; Globulin 3.2 g/dL (1.3-4.6); Glucose 117 mg/dL (65-115); Osmolality Calculated 288 mOsm/kg (285-295); Sodium 138 mmol/L (136-145); Total Bilirubin 1.1 mg/dL (0.15-1.2); Total Protein 6.8 g/dL (6.6-8.7)
[2020-05-11 15:20] LABS: Add Urine Microscopic? NO
[2020-05-11 15:26] LABS: Bilirubin Urine Neg (Negative); Blood Urine Neg (Negative); Glucose Urine UA Norm (Normal); Ketones Urine Negative (Negative); Leukocyte Esterase Urine Negative (Negative); Nitrate Urine Negative (Negative); Protein Urine Neg (Negative); Sulfosalicylic Acid Urine Negative (Negative); Urine Appearance Clear (CLEAR); Urine Color Straw (Yellow); Urobilinogen Urine Norm (Negative); pH Urine 8 (5-7)
[2020-05-11 15:37] LABS: Troponin(5th) Baseline 7 ng/L (0-10)
[2020-05-11 15:44] LABS: ABG PH Result 7.59 (7.35-7.45)
--- NOTE | 2020-05-11 15:52 | ECG_ITS ---
[facility] Test Date: 2020-05-11 Pat Name: Anish Dockery Department: Room: Gender: Female Emergency Department Manager: : 1945 Requested By: Vin Colon Order Number: [id number] Araceli MD: Nicolas Romero M.D. Measurements Intervals [place] Rate: 73 P: 70 IL: 171 QRS: -5 QRSD: 98 T: 23 QT: 413 QTc: 456 Interpretive Statements SINUS RHYTHM MODERATE VOLTAGE CRITERIA FOR LVH, CONSIDER NORMAL VARIANT [MEETS CRITERIA IN ONE OF: R(aVL), S(V1), R(V5), R(V5/V6)+S(V1)] Electronically Signed On 05-11-2020 19:21:50 CDT by Nicolas Romero M.D. [id number]
[2020-05-11 16:05] VITALS: BP 122/67; PULSE 78; RESP 20; O2SAT 94
[2020-05-11] MEDS: potassium chloride oral liq 20 mEq/15 mL UDC 40 MEQ PO (16:06)
[2020-05-11 16:57] VITALS: BP 136/86; PULSE 76; RESP 27; O2SAT 97
== END 2020-05-11 16:58 | disposition home or self-care (01) ==
PROVIDERS: Emergency Provider Family Medicine; PCP Family Medicine
DX: F41.9 Anxiety disorder, unspecified (principal); F45.8 Other somatoform disorders; Z85.3 Personal history of malignant neoplasm of breast; I10 Essential (primary) hypertension
CPT/HCPCS: 36600; 70450; 80051; 80053; 81003; 82330; 82805; 84484; 85025; 93005; 96374; 99284; J2060

== ENCOUNTER → 2020-05-19 13:27 | Outpatient (BNVA) | payer MEDICARE, OTHER, SELFPAY | PROVIDERS: PCP Family Medicine; Visit Provider Urology | DX: N39.0 Urinary tract infection, site not specified (principal) | CPT/HCPCS: 81003 ==

== ENCOUNTER 2021-03-11 12:07 | Emergency (ER) | payer OTHER, MEDICARE, SELFPAY ==
[2021-03-11 12:19] VITALS: BP 150/71; PULSE 80; RESP 16; O2SAT 100
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
[2021-03-11] MEDS: diphenhydrAMINE 50 mg/mL SDV 1mL 25 MG IVP (12:53)
[2021-03-11] MEDS: ondansetron 2 mg/ML SDV 2 mL 4 MG IVP (12:53)
[2021-03-11] MEDS: iodixanol 320 mg/mL 100mL Btl IV (13:02)
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
[2021-03-11] MEDS: LORazepam 2 mg/mL INJ 1 mL 1 MG IVP (14:03)
--- NOTE | 2021-03-12 09:39 | DCPLANNER ---
Addendum entered by Joann Rajan 03/19/21 12:43: Patient had a follow up appointment scheduled for 03.12.21 with ortho - patient did attend appointment. Original Note: manager financial systems had message to schedule a follow up appointment for patient with ortho. manager financial systems called the ortho clinic, spoke with Lynette, gave clinic patients information. manager financial systems was told that patients information would be printed and reviewed. Clinci will call patient with appointment information.
== END 2021-03-11 17:04 | disposition home or self-care (01) ==
PROVIDERS: Emergency Provider Physician Assistant; PCP Family Medicine
DX: S22.42XA Multiple fractures of ribs, left side, initial encounter for closed fracture (principal); S92.324A Nondisplaced fracture of second metatarsal bone, right foot, initial encounter for closed fracture; S92.334A Nondisplaced fracture of third metatarsal bone, right foot, initial encounter for closed fracture; S92.344A Nondisplaced fracture of fourth metatarsal bone, right foot, initial encounter for closed fracture; S92.354A Nondisplaced fracture of fifth metatarsal bone, right foot, initial encounter for closed fracture; Z85.3 Personal history of malignant neoplasm of breast; I10 Essential (primary) hypertension; V89.2XXA Person injured in unspecified motor-vehicle accident, traffic, initial encounter
CPT/HCPCS: 70450; 71260; 72125; 73562; 73630; 74177; 96374; 96375; 97760; 99283; J1200; J2060; J2405; L4361; Q9967

== ENCOUNTER → 2021-03-26 14:10 | Outpatient (BNVA) | payer OTHER, MEDICARE, SELFPAY | PROVIDERS: PCP Family Medicine; Visit Provider Podiatrist Foot & Ankle Surgery | DX: M79.605 Pain in left leg (principal); S92.324D Nondisplaced fracture of second metatarsal bone, right foot, subsequent encounter for fracture with routine healing; S92.334D Nondisplaced fracture of third metatarsal bone, right foot, subsequent encounter for fracture with routine healing; S92.344D Nondisplaced fracture of fourth metatarsal bone, right foot, subsequent encounter for fracture with routine healing; X58.XXXD Exposure to other specified factors, subsequent encounter | CPT/HCPCS: 73590; 73630 ==

== ENCOUNTER → 2021-04-14 11:25 | Outpatient (BNVA) | payer OTHER, MEDICARE, SELFPAY | PROVIDERS: PCP Family Medicine; Visit Provider Podiatrist Foot & Ankle Surgery | DX: S92.321D Displaced fracture of second metatarsal bone, right foot, subsequent encounter for fracture with routine healing (principal); V89.2XXD Person injured in unspecified motor-vehicle accident, traffic, subsequent encounter | CPT/HCPCS: 73630 ==

== ENCOUNTER → 2021-04-28 10:46 | Outpatient (BNVA) | payer MEDICARE, SELFPAY | PROVIDERS: PCP Family Medicine; Visit Provider Podiatrist Foot & Ankle Surgery | DX: S92.343D Displaced fracture of fourth metatarsal bone, unspecified foot, subsequent encounter for fracture with routine healing (principal); V89.2XXD Person injured in unspecified motor-vehicle accident, traffic, subsequent encounter; S92.353D Displaced fracture of fifth metatarsal bone, unspecified foot, subsequent encounter for fracture with routine healing; S92.333D Displaced fracture of third metatarsal bone, unspecified foot, subsequent encounter for fracture with routine healing; S92.323D Displaced fracture of second metatarsal bone, unspecified foot, subsequent encounter for fracture with routine healing | CPT/HCPCS: 73630 ==

== ENCOUNTER → 2021-05-19 13:20 | Outpatient (BNVA) | payer MEDICARE, OTHER, SELFPAY | PROVIDERS: PCP Family Medicine; Visit Provider Nurse Practitioner Family | DX: N39.0 Urinary tract infection, site not specified (principal); N30.20 Other chronic cystitis without hematuria | CPT/HCPCS: 81003 ==

== ENCOUNTER → 2021-05-25 07:50 | Outpatient (BNVA) | payer MEDICARE, OTHER, SELFPAY | PROVIDERS: PCP Family Medicine; Visit Provider Podiatrist Foot & Ankle Surgery | DX: S92.354D Nondisplaced fracture of fifth metatarsal bone, right foot, subsequent encounter for fracture with routine healing (principal); S92.344D Nondisplaced fracture of fourth metatarsal bone, right foot, subsequent encounter for fracture with routine healing; S92.334D Nondisplaced fracture of third metatarsal bone, right foot, subsequent encounter for fracture with routine healing; S92.324D Nondisplaced fracture of second metatarsal bone, right foot, subsequent encounter for fracture with routine healing; V89.2XXD Person injured in unspecified motor-vehicle accident, traffic, subsequent encounter | CPT/HCPCS: 73630; 99213; 99214 ==

== ENCOUNTER → 2022-05-19 12:52 | Outpatient (BNVA) | payer MEDICARE, OTHER, SELFPAY | PROVIDERS: PCP Family Medicine; Visit Provider Urology | DX: N39.0 Urinary tract infection, site not specified (principal) | CPT/HCPCS: 51798; 81003; 99213 ==

== ENCOUNTER 2022-08-16 02:30 | Emergency (ER) | payer MEDICARE, OTHER, SELFPAY ==
--- NOTE | 2022-08-16 02:33 | ED_ITS ---
HPI - Abdominal Pain General: Chief Complaint: Nausea/Vomiting/Diarrhea Stated Complaint: abd pain Time Seen by Provider: 08/16/22 02:33 History of Present Illness: 77-year-old lady currently on Bactrim for UTI presenting with generalized illness. Nausea and abdominal cramping. Generalized malaise and fatigue. She notes urinary frequency and incomplete emptying which is continued. Intensity is moderate to severe. Patient reports feeling generally unwell. No other specific changes in health, exacerbating, or alleviating factors identified. Onset (ago): day(s) Review of Systems General: Reports: 10 or more systems reviewed and unremarkable except in HPI and below PFSH ED PFSH: Medical History (Updated 08/24/22 @ 00:01 by BRIDGETTE Shelton) Breast cancer Chronic cystitis HTN (hypertension) Recurrent UTI Thyroid disorder Surgical History Hx of appendectomy Hx of bilateral mastectomy Hx of cholecystectomy Hx of thyroidectomy Family History Mother , AT AGE 91 Diabetes Father , AT AGE 61 CAD (coronary artery disease) Other Cancer Social History Smoking and tobacco status: never smoked Alcohol intake: never Adopted: No Caregiver/support person: No Lives independently: No Household members: spouse Marital status: Current occupational status: retired Physical Exam Const: COMMON NORMALS: alert GENERAL APPEARANCE: cooperative and well developed HENMT: COMMON NORMALS: normocephalic and atraumatic HEAD & SCALP: normocephalic and atraumatic THROAT: posterior oropharynx normal Eye: COMMON NORMALS: conjunctivae normal CONJUNCTIVA: Yes conjunctivae normal SCLERA: sclerae normal Neck/C-Spine: COMMON NORMALS: supple GENERAL: Yes trachea midline Resp: COMMON NORMALS: normal respiratory effort EFFORT & INSPECTION: Yes able to speak in complete sentences Cardio: COMMON NORMALS: regular rate and regular rhythm RATE: regular rate RHYTHM: regular rhythm GI: COMMON NORMALS: Soft to palpation PALPATION: Yes Soft to palpation, Yes Tenderness to palpation present (GI), No Guarding due to palpation present (GI) and No Rigid due to palpation Extremity: GENERAL: Yes normal exam except as noted and No edema Neuro: COMMON NORMALS: moves all extremities SENSORIUM/ORIENTATION: Yes alert and No Orientation impaired Psych: COMMON NORMALS: mental status grossly normal and Normal thought process present THOUGHT PROCESS: Normal thought process present Course Vital Signs: Vital signs: Vital Signs Temperature 98.2 F 08/16/22 02:37 Pulse Rate 68 08/16/22 04:54 Respiratory Rate 21 H 08/16/22 03:13 Blood Pressure 120/57 08/16/22 04:54 Pulse Oximetry 98 08/16/22 04:54 Oxygen Delivery Me thod Room Air 08/16/22 03:13 MDM - Abdominal Pain Medical Decision Making 77-year-old lady with recent diagnosis of urinary tract infection presenting with generalized illness. Mildly ill however nontoxic on exam. Abdominal tenderness without evidence of acute surgical abdomen. EKG demonstrates sinus rhythm with left axis deviation, no STEMI. Essentially unremarkable hematologic and metabolic panel with the exception of perhaps minimal dehydration. Negative range delta troponin. Resolution of UTI noted. CT demonstrates perhaps enteritis and mild constipation. Incidental findings noted. Improved with fluids and Zofran and able to tolerate p.o. intake. The results of ED evaluation were discussed with the patient including prescriptions and/or symptomatic cares (if applicable) including appropriate and responsible use, followup plan, and return precautions. The patient verbalized understanding and felt safe for discharge. Medical Records I reviewed the patient's medical records. Lab Data I reviewed the patient's lab results. 08/16/22 02:46 08/16/22 02:46 Labs/Radiology: Radiology Impressions Abdomen/Pelvis CT 08/16/22 03:17 IMPRESSION: 1. Mesenteric haziness is nonspecific but could be subtle evidence of mild infectious/inflammatory enteritis. 2. Diverticulosis without diverticulitis. 3. Mild constipation. COMMENTS: Consistent with the [employer] [employer]'s Incidental Findings Committee white paper (J Am Nika Radiol 2018): Any incidental renal lesion less than 1 cm or classified as too small to characterize, or any incidental cystic renal lesion characterized as simple-appearing, is likely benign. No follow-up imaging is recommended for these lesions per consensus recommendations based on imaging criteria. Laboratory Results WBC 6.7 10^3/uL (4.0-10.0) 08/16/22 02:46 RBC 4.19 10^6/uL (4.1-5.3) 08/16/22 02:46 Hgb 12.8 g/dL (11.5-15.3) 08/16/22 02:46 Hct 38.9 % (37.0-47.0) 08/16/22 02:46 MCV 92.8 fl (81-99) 08/16/22 02:46 MCH 30.5 pg (28.0-34.0) 08/16/22 02:46 MCHC 32.9 g/dL (30.0-36.0) 08/16/22 02:46 RDW 13.3 % (12.1-15.1) 08/16/22 02:46 Plt Count 187 10^3/cmm (130-400) 08/16/22 02:46 MPV 10.4 fL (7.4-10.4) 08/16/22 02:46 Neut % (Auto) 46.3 % 08/16/22 02:46 Lymph % (Auto) 40.4 % 08/16/22 02:46 [place] % (Auto) 11.1 % 08/16/22 02:46 Eos % (Auto) 1.8 % 08/16/22 02:46 Baso % (Auto) 0.3 % 08/16/22 02:46 Neut # (Auto) 3.10 10^3/uL (1.8-7.7) 08/16/22 02:46 Lymph # (Auto) 2.7 10^3/uL (0.8-4.8) 08/16/22 02:46 [place]ven # (Auto) 0.7 10^3/uL (0.2-0.9) 08/16/22 02:46 Eos # (Auto) 0.1 10^3/uL (0.0-0.8) 08/16/22 02:46 Baso # (Auto) 0.0 10^3/uL (0.0-0.1) 08/16/22 02:46 Nucleated RBC % (auto) 0 % 08/16/22 02:46 Nucleated RBCs # 0.0 /100WBC 08/16/22 02:46 Sodium 136 mmol/L (136-145) 08/16/22 02:46 Potassium 3.8 mmol/L (3.5-5.1) 08/16/22 02:46 Chloride 103 mmol/L (98-107) 08/16/22 02:46 Carbon Dioxide 24 mmol/L (22-29) 08/16/22 02:46 Anion Gap 12.8 (5-19) 08/16/22 02:46 BUN 19 mg/dL (8-23) 08/16/22 02:46 Creatinine 1.1 mg/dL (0.5-0.9) H 08/16/22 02:46 GFR Calculation Not Reportable 08/16/22 02:46 Glucose 95 mg/dL (65-115) 08/16/22 02:46 Calculated Osmolality 284 mOsm/kg (285-295) L 08/16/22 02:46 Lactic Acid 1.1 mmol/L (0.5-2.2) 08/16/22 02:46 Calcium 9.2 mg/dL (8.5-10.5) 08/16/22 02:46 Magnesium 2.0 mg/dL (1.7-2.3) 08/16/22 02:46 Total Bilirubin 0.8 mg/dL (0.15-1.2) 08/16/22 02:46 AST 20 U/L (0-32) 08/16/22 02:46 ALT 13 U/L (0-33) 08/16/22 02:46 Alkaline Phosphatase 85 U/L (35-105) 08/16/22 02:46 Troponin T Baseline 10 ng/L (0-10) 08/16/22 02:46 Troponin T 120 Minute 6.20 ng/L (0-10) 08/16/22 04:00 Delta Troponin T -3.8 ABS# (0-10) L 08/16/22 04:00 Total Protein 6.9 g/dL (6.6-8.7) 08/16/22 02:46 Albumin 3.9 g/dL (3.5-5.2) 08/16/22 02:46 Globulin 3.0 g/dL (1.3-4.6) 08/16/22 02:46 Lipase 44 U/L (13-60) 08/16/22 02:46 Urine Color Colorless (Yellow) 08/16/22 02:50 Urine Appearance Clear (CLEAR) 08/16/22 02:50 Urine pH 7 (5-7) 08/16/22 02:50 Ur Specific [place] 1.010 (1.005-1.030) 08/16/22 02:50 Urine Protein Neg (Negative) 08/16/22 02:50 Urine Glucose (UA) Norm (Normal) 08/16/22 02:50 Urine Ketones Negative (Negative) 08/16/22 02:50 Urine Blood Neg (Negative) 08/16/22 02:50 Urine Nitrate Negative (Negative) 08/16/22 02:50 Urine Bilirubin Neg (Negative) 08/16/22 02:50 Urine Urobilinogen Neg mg/dL (Negative) 08/16/22 02:50 Ur Leukocyte Esterase Negative (Negative) 08/16/22 02:50 Discharge Plan Discharge Patient Disposition: Home Clinical Impression: Nausea, Abdominal pain, Enteritis Condition: Stable Prescriptions: New ondansetron 4 mg tablet,disintegrating 4 mg PO Q8H PRN (Reason: nausea and vomiting) Qty: 15 0RF No Action cholecalciferol (vitamin D3) 50 mcg (2,000 unit) capsule 50 mcg PO DAILY hydrochlorothiazide 12.5 mg tablet 12.5 mg PO DAILY levothyroxine 112 mcg capsule 112 mcg PO .TAKES ON MONDAY losartan 100 mg tablet Synthroid 100 mcg tablet hydroxyzine HCl 25 mg tablet 25 mg PO QID PRN (Reason: prn anxiety) Qty: 20 0RF Discharge Orders: Discharge ED (Routine); Ordered 08/16/22 Ordered By: Thor Monaco Referrals: David Resendiz MD [Primary Care Provider] - Discharge Diet: Advance as tolerated and Clear Liquid Discharge Activity: Increase activity as tolerated Patient Instructions: Abdominal Pain (ED), Enteritis (ED) Activity Restrictions/Additional Instructions: Thank you for visiting the emergency department. You were seen and evaluated for abdominal pain with nausea. The exact cause your symptoms is unclear. CT did show perhaps mild enteritis which can explain some symptoms. I believe continuing your antibiotic regimen is appropriate which will also treat possible GI infection. I will prescribe antinausea medication. Please follow-up with your primary care provider. I recommend clear liquid diet and advancing as tolerated. Please ensure that you are staying hydrated. Return for uncontrolled symptoms or anything else that you are concerned about and feel needs emergency department evaluation. Coding Level of Care Code ED Collection Card Clerk for Renata Braga
[2022-08-16 02:37] VITALS: BP 151/86; PULSE 80; RESP 16; TEMP 36.8; O2SAT 100; BMI 25.4
--- NOTE | 2022-08-16 02:49 | ECG_ITS ---
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 Measurements Intervals [place] Rate: 68 P: 42 OK: 159 QRS: -9 QRSD: 93 T: 52 QT: 397 QTc: 423 Interpretive Statements SINUS RHYTHM MINIMAL VOLTAGE CRITERIA FOR LVH, CONSIDER NORMAL VARIANT [MEETS CRITERIA IN ONE OF: R(aVL), S(V1), R(V5), R(V5/V6)+S(V1)] Compared to ECG 05/11/2020 15:26:40 No significant changes Electronically Signed On 08-16-2022 8:28:53 CDT by Nicolas Romero M.D. [id number]
[2022-08-16 02:53] LABS: Basophils % 0.3 %; Eosinophils # 0.1 10^3/uL (0.0-0.8); Eosinophils % 1.8 %; Hematocrit 38.9 % (37.0-47.0); Hemoglobin 12.8 g/dL (11.5-15.3); Lymphocytes # 2.7 10^3/uL (0.8-4.8); Lymphocytes % 40.4 %; Mean Corpuscular HGB Conc 32.9 g/dL (30.0-36.0); Mean Corpuscular Hemoglobin 30.5 pg (28.0-34.0); Mean Corpuscular Volume 92.8 fl (81-99); Mean Platelet Volume 10.4 fL (7.4-10.4); Monocytes # 0.7 10^3/uL (0.2-0.9); Monocytes % 11.1 %; Neutrophils % 46.3 %; Nucleated Red Blood Cells % 0 %; Platelet Count 187 10^3/cmm (130-400); Red Blood Count 4.19 10^6/uL (4.1-5.3); Red Cell Distribution Width 13.3 % (12.1-15.1); White Blood Count 6.7 10^3/uL (4.0-10.0)
[2022-08-16 02:54] VITALS: BP 151/96; PULSE 83; RESP 23; O2SAT 94
[2022-08-16] MEDS: ondansetron 2 mg/ML SDV 2 mL 4 MG IVP (02:57)
[2022-08-16] MEDS: sodium chloride 0.9% 1,000 ML 999 ML IV (02:57)
[2022-08-16 03:13] VITALS: PULSE 74; RESP 21; O2SAT 99
[2022-08-16 03:13] LABS: Alanine Aminotransferase 13 U/L (0-33); Albumin Level 3.9 g/dL (3.5-5.2); Alkaline Phosphatase 85 U/L (35-105); Aspartate Amino Transferase 20 U/L (0-32); Blood Urea Nitrogen 19 mg/dL (8-23); Calcium 9.2 mg/dL (8.5-10.5); Carbon Dioxide 24 mmol/L (22-29); Chloride 103 mmol/L (98-107); Glucose 95 mg/dL (65-115); Lipase 44 U/L (13-60); Osmolality Calculated 284 mOsm/kg (285-295); Sodium 136 mmol/L (136-145); Total Bilirubin 0.8 mg/dL (0.15-1.2); Total Protein 6.9 g/dL (6.6-8.7)
[2022-08-16 03:16] LABS: Lactic Sepsis W/Reflex 1.1 mmol/L (0.5-2.2)
--- NOTE | 2022-08-16 03:17 | CTR_ITS ---
PROCEDURE INFORMATION: Exam: CT Abdomen And Pelvis Without Contrast Exam date and time: 08/16/2022 3:34 AM Age: 77 years old Clinical indication: Nausea and vomiting; Abdominal pain; Generalized; Prior surgery; Surgery date: 6+ months; Surgery type: Cholecystectomy; Additional info: Nausea, abd pain TECHNIQUE: Imaging protocol: Computed tomography of the abdomen and pelvis without contrast. Radiation optimization: All CT scans at this facility use at least one of these dose optimization techniques: automated exposure control; mA and/or kV adjustment per patient size (includes targeted exams where dose is matched to clinical indication); or iterative reconstruction. REPORTING DATA: Count of CT and Cardiac NM exams in prior 12 months: This patient has received 0 known CTs and 0 known cardiac nuclear medicine studies in the 12 months prior to the current study. COMPARISON: CT chest abdpel w/*[id number] 03/11/2021 12:48 PM RADIATION DOSE METRICS: Total DLP (mGy-cm): 484.46 FINDINGS: Lungs: The lung bases are clear. No effusion Liver: Normal. No mass. Gallbladder and bile ducts: There has been a cholecystectomy. Pancreas: Normal. No ductal dilation. Spleen: Normal. No splenomegaly. Adrenal glands: Normal. No mass. Kidneys and ureters: Multiple parapelvic left renal cysts, largest is 2 cm. Stomach and bowel: Diverticulosis without diverticulitis. Mild amount of formed stool in the colon. Appendix: No evidence of appendicitis. Intraperitoneal space: Mesenteric haziness is nonspecific but could be subtle evidence of mild infectious/inflammatory enteritis. Vasculature: There is mild atherosclerotic disease. Lymph nodes: Unremarkable. No enlarged lymph nodes. Urinary bladder: Unremarkable as visualized. Reproductive: Unremarkable as visualized. Bones/joints: Unremarkable. No acute fracture. Soft tissues: Unremarkable. CT/CT abdomen pelvis wo con [id number] IMPRESSION: 1. Mesenteric haziness is nonspecific but could be subtle evidence of mild infectious/inflammatory enteritis. 2. Diverticulosis without diverticulitis. 3. Mild constipation. COMMENTS: Consistent with the [place] [employer]'s Incidental Findings Committee white paper (J Am Nika Radiol 2018): Any incidental renal lesion less than 1 cm or classified as too small to characterize, or any incidental cystic renal lesion characterized as simple-appearing, is likely benign. No follow-up imaging is recommended for these lesions per consensus recommendations based on imaging criteria.
[2022-08-16 03:18] LABS: Troponin(5th) Baseline 10 ng/L (0-10)
[2022-08-16 03:19] LABS: Add Urine Microscopic? NO; Charge for UA Resulting for Rev
[2022-08-16 03:40] LABS: Anion Gap 12.8 (5-19); Potassium 3.8 mmol/L (3.5-5.1)
[2022-08-16 03:40] LABS: Glucose Urine UA Norm (Normal); Ketones Urine Negative (Negative); Protein Urine Neg (Negative); Urine Appearance Clear (CLEAR); Urine Color Colorless (Yellow); pH Urine 7 (5-7)
[2022-08-16 03:41] LABS: Bilirubin Urine Neg (Negative); Blood Urine Neg (Negative); Leukocyte Esterase Urine Negative (Negative); Nitrate Urine Negative (Negative); Urobilinogen Urine Neg (Negative)
[2022-08-16 04:54] VITALS: BP 120/57; PULSE 68; O2SAT 98
[2022-08-16 05:30] LABS: Troponin 5 2HR Delta -3.8 ABS# (0-10)
== END 2022-08-16 04:58 | disposition home or self-care (01) ==
PROVIDERS: Emergency Provider Emergency Medicine; PCP Family Medicine
DX: K52.9 Noninfective gastroenteritis and colitis, unspecified (principal); R94.31 Abnormal electrocardiogram [ECG] [EKG]
CPT/HCPCS: 36415; 74176; 80053; 81003; 83605; 83690; 83735; 84484; 85025; 87040; 93005; 96361; 96374; 99285; J2405; J7030

== ENCOUNTER 2023-02-12 05:08 | Emergency (ER) | payer MEDICARE, OTHER, SELFPAY ==
[2023-02-12 05:17] VITALS: BP 159/86; PULSE 68; RESP 17; TEMP 36.4; O2SAT 97; BMI 24.5
[2023-02-12] MEDS: sodium chloride 0.9% 1,000 ML 999 ML IV (05:31)
[2023-02-12 05:33] LABS: Basophils % 0.3 %; Eosinophils # 0.1 10^3/uL (0.0-0.8); Eosinophils % 1.5 %; Lymphocytes # 1.7 10^3/uL (0.8-4.8); Lymphocytes % 29.6 %; Mean Corpuscular Hemoglobin 30.6 pg (27-33); Mean Corpuscular Volume 92.8 fl (85-98); Mean Platelet Volume 10.5 fL (7.4-10.4); Monocytes # 0.6 10^3/uL (0.2-0.9); Monocytes % 9.8 %; Neutrophils # 3.41 10^3/uL (1.8-7.7); Neutrophils % 58.5 %; Nucleated Red Blood Cells % 0 %; Platelet Count 192 10^3/cmm (157-399); Red Blood Count 4.31 10^6/uL (3.85-5.65); Red Cell Distribution Width 12.9 % (12.1-15.1); White Blood Count 5.84 10^3/uL (3.29-11.43)
--- NOTE | 2023-02-12 05:38 | ED_ITS ---
HPI - Nausea/Vomiting/Diarrhea 2 General: Chief complaint: Nausea/Vomiting/Diarrhea Stated complaint: n/v/d, abdomen pain Time Seen by Provider: 02/12/23 05:23 Source: patient Mode of arrival: ambulatory Limitations: no limitations History of Present Illness: 77-year-old female who states she has be en having nausea along with diarrhea and abdominal pain over the last 2 to 3 days. She states she was diagnosed a UTI she is currently on Augmentin states that today her diarrhea is worsened. States before she was having 2-3 loose stools a day now has been having them roughly every hour with abdominal cramping. She states she has had nausea in the mornings. Denies any fevers. Associated nausea: Yes Associated symtoms: Reports nausea; Denies chest pain or headache(s) Review of Systems 2 Const: Denies: fever(s) or chills ENMT: Denies: throat pain or dental pain Card: Denies: chest pain Resp: Denies: dyspnea GI: Reports: abdominal pain, nausea, vomiting and diarrhea Musc: Denies: neck pain or back pain Skin/Breast: Denies: rash Neuro: Denies: headache(s) PFSH ED 2 PFSH: Medical History (Updated 02/12/23 @ 05:54 by Nneo Hernandez MD) Recurrent UTI HTN (hypertension) Breast cancer Thyroid disorder Chronic cystitis Surgical History Hx of bilateral mastectomy Hx of appendectomy Hx of thyroidectomy Hx of cholecystectomy Family History Mother , AT AGE 91 Diabetes Father , AT AGE 61 CAD (coronary artery disease) Other Cancer Social History Smoking and tobacco/nicotine status: never used tobacco/nicotine Alcohol intake: never Adopted: No Caregiver/support person: No Lives independently: No Household members: spouse Marital status: Current occupational status: retired Physical Exam 2 Const: COMMON NORMALS: no acute distress, patient oriented x3 and healthy appearing HENMT: COMMON NORMALS: normocephalic and atraumatic HEAD & SCALP: n ormocephalic and atraumatic Eye: COMMON NORMALS: Equal, round and reactive pupils present and EOMs intact bilaterally PUPIL: Yes Equal, round and reactive pupils present Neck/C-Spine: COMMON NORMALS: full ROM and supple Chest: COMMONS NORMALS: normal inspection of the chest and normal palpation of entire chest wall Resp: COMMON NORMALS: normal respiratory effort, No retractions, No use of accessory muscles and clear to auscultation bilaterally AUSCULTATION: clear to auscultation bilaterally Cardio: COMMON NORMALS: regular rate, regular rhythm and No murmurs present (Cardio) RATE: regular rate RHYTHM: regular rhythm GI: COMMON NORMALS: Normal to inspection, nondistended, normoactive bowel sounds present, Soft to palpation, non-tender and no masses PALPATION: Yes Soft to palpation Extremity: COMMON NORMALS: normal to inspection and full ROM Neuro: COMMON NORMALS: patient oriented x3, moves all extremities and no focal motor deficits Psych: COMMON NORMALS: mental status grossly normal, Normal thought process present and cooperative THOUGHT PROCESS: Normal thought process present Skin: COMMON NORMALS: no rashes or lesions noted and no wounds GENERAL SKIN EXAM: no rashes or lesions noted Course 2 Vital Signs: Vital signs: Vital Signs Temperature 97.6 F 02/12/23 05:17 Pulse Rate 68 02/12/23 05:17 Respiratory Rate 17 02/12/23 05:17 Blood Pressure 159/86 02/12/23 05:17 Pulse Oximetry 97 02/12/23 05:17 Oxygen Delivery Me thod Room Air 02/12/23 05:17 MDM - Nausea/Vomiting/Diarrhea Medical Decision Making Patient presents here with diarrhea along with some abdominal cramping and nausea she is recently started antibiotics could have caused her diarrhea her white count here is normal her abdominal exam is benign. She is to take Imodium A-D [id number] we will prescribe her Zofran she is return if worsening she is to follow-up with PCP in 3 to 5 days. Medical Records I reviewed the patient's medical records. Lab Data I reviewed the patient's lab results. 02/12/23 05:26 02/12/23 05:26 Laboratory Results WBC 5.84 10^3/uL (3.29-11.43) 02/12/23 05:26 RBC 4.31 10^6/uL (3.85-5.65) 02/12/23 05:26 Hgb 13.20 g/dL (11.27-16.99) 02/12/23 05:26 Hct 40.0 % (36-47) 02/12/23 05:26 MCV 92.8 fl (85-98) 02/12/23 05:26 MCH 30.6 pg (27-33) 02/12/23 05:26 MCHC 33.0 g/dL (30-55) 02/12/23 05:26 RDW 12.9 % (12.1-15.1) 02/12/23 05:26 Plt Count 192 10^3/cmm (157-399) 02/12/23 05:26 MPV 10.5 fL (7.4-10.4) H 02/12/23 05:26 Neut % (Auto) 58.5 % 02/12/23 05:26 Lymph % (Auto) 29.6 % 02/12/23 05:26 [place] % (Auto) 9.8 % 02/12/23 05:26 Eos % (Auto) 1.5 % 02/12/23 05:26 Baso % (Auto) 0.3 % 02/12/23 05:26 Neut # (Auto) 3.41 10^3/uL (1.8-7.7) 02/12/23 05:26 Lymph # (Auto) 1.7 10^3/uL (0.8-4.8) 02/12/23 05:26 [place] # (Auto) 0.6 10^3/uL (0.2-0.9) 02/12/23 05:26 Eos # (Auto) 0.1 10^3/uL (0.0-0.8) 02/12/23 05:26 Baso # (Auto) 0.0 10^3/uL (0.0-0.1) 02/12/23 05:26 Nucleated RBC % (auto) 0 % 02/12/23 05:26 Nucleated RBCs # 0.0 /100WBC 02/12/23 05:26 Sodium 140 mmol/L (136-145) 02/12/23 05:26 Potassium 3.7 mmol/L (3.5-5.1) 02/12/23 05:26 Chloride 105 mmol/L (98-107) 02/12/23 05:26 Carbon Dioxide 24 mmol/L (22-29) 02/12/23 05:26 Anion Gap 14.7 (5-19) 02/12/23 05:26 BUN 15 mg/dL (8-23) 02/12/23 05:26 Creatinine 0.7 mg/dL (0.5-0.9) 02/12/23 05:26 GFR Calculation Not Reportable 02/12/23 05:26 Glucose 115 mg/dL (65-115) 02/12/23 05:26 Calculated Osmolality 292 mOsm/kg (285-295) 02/12/23 05:26 Calcium 9.6 mg/dL (8.5-10.5) 02/12/23 05:26 Total Bilirubin 1.1 mg/dL (0.15-1.2) 02/12/23 05:26 AST 18 U/L (0-32) 02/12/23 05:26 ALT 11 U/L (0-33) 02/12/23 05:26 Alkaline Phosphatase 88 U/L (35-105) 02/12/23 05:26 Total Protein 7.0 g/dL (6.6-8.7) 02/12/23 05:26 Albumin 3.6 g/dL (3.5-5.2) 02/12/23 05:26 Globulin 3.4 g/dL (1.3-4.6) 02/12/23 05:26 Lipase 36 U/L (13-60) 02/12/23 05:26 No radiology studies performed this visit Discharge Plan Discharge Patient Disposition: Home Clinical Impression: Nausea Diarrhea Qualifiers: Diarrhea type: unspecified type Qualified Code(s): R19.7 - Diarrhea, unspecified Condition: Stable Prescriptions: New ondansetron 4 mg tablet,disintegrating 4 mg PO Q6H PRN (Reason: nausea and vomiting) Qty: 14 0RF No Action cholecalciferol (vitamin D3) 50 mcg (2,000 unit) capsule 50 mcg PO DAILY hydrochlorothiazide 12.5 mg tablet 12.5 mg PO DAILY levothyroxine 112 mcg capsule 112 mcg PO .TAKES ON MONDAY losartan 100 mg tablet Synthroid 100 mcg tablet hydroxyzine HCl 25 mg tablet 25 mg PO QID PRN (Reason: prn anxiety) Qty: 20 0RF ondansetron 4 mg tablet,disintegrating 4 mg PO Q8H PRN (Reason: nausea and vomiting) Qty: 15 0RF Discharge Orders: Discharge ED (Routine); Ordered 02/12/23 Ordered By: Neno Hernandez Referrals: David Resendiz MD [Primary Care Provider] - 4-7 days Discharge Diet: Advance as tolerated Discharge Activity: Resume usual activity Patient Instructions: Acute Nausea and Vomiting (ED), Acute Diarrhea (ED) Activity Restrictions/Additional Instructions: take immodium AD over the counter as needed for diarrhea Coding Level of Care Code ED Balance Staff Staker for Renata Braga
[2023-02-12 05:50] LABS: Alanine Aminotransferase 11 U/L (0-33); Albumin Level 3.6 g/dL (3.5-5.2); Alkaline Phosphatase 88 U/L (35-105); Anion Gap 14.7 (5-19); Aspartate Amino Transferase 18 U/L (0-32); Blood Urea Nitrogen 15 mg/dL (8-23); Calcium 9.6 mg/dL (8.5-10.5); Carbon Dioxide 24 mmol/L (22-29); Chloride 105 mmol/L (98-107); Globulin 3.4 g/dL (1.3-4.6); Glucose 115 mg/dL (65-115); Lipase 36 U/L (13-60); Osmolality Calculated 292 mOsm/kg (285-295); Potassium 3.7 mmol/L (3.5-5.1); Sodium 140 mmol/L (136-145); Total Bilirubin 1.1 mg/dL (0.15-1.2)
[2023-02-12] MEDS: diphenoxylate/atropine Tablet 1 TAB PO (05:50)
[2023-02-12] MEDS: ondansetron 2 mg/ML SDV 2 mL 4 MG IVP (05:50)
[2023-02-12 06:22] VITALS: BP 111/70; O2SAT 95
== END 2023-02-12 06:23 | disposition home or self-care (01) ==
PROVIDERS: Emergency Provider Emergency Medicine; PCP Family Medicine
DX: R11.0 Nausea (principal); R19.7 Diarrhea, unspecified; I10 Essential (primary) hypertension; Z87.440 Personal history of urinary (tract) infections; Z85.3 Personal history of malignant neoplasm of breast
CPT/HCPCS: 80053; 83690; 85025; 96361; 96374; 99284; J2405; J7030

== ENCOUNTER 2024-09-29 05:44 | Emergency (ER) | payer MEDICARE, OTHER, SELFPAY ==
--- OUTSIDE RECORDS SUMMARY | 2024-09-29 05:50 | XMS_ITS | Encounter Summary ---
Author Organization [facility] Address [address] [place] [address] Care Team Providers Care Marine Biologist Name Role Phone David Resendiz MD Primary Care Provider [phone] Encounter Details Date Type Department Care Team (Latest Contact Info) Description 06/16/2006 Outpatient Historical [facility] [address] [place] [address] [address] [place] [address] Jay Heller MD NO ADDRESS ON FILE Malignant Neoplasm of Upper-Outer Quadrant of Female Breast (CMS/HCC) (Primary Dx) Social History Tobacco Use Types Packs/Day Years Used Date Smoking Tobacco: Never Assessed Comments Unknown Sex and Gender Information Value Date Recorded Sex Assigned at Not on file Legal Sex 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
--- OUTSIDE RECORDS SUMMARY | 2024-09-29 05:50 | XMS_ITS | Encounter Summary ---
Author Organization [facility] Address [address] [place] [address] Care Team Providers Care Community Facilitator Name Role Phone David Resendiz MD Primary Care Provider [phone] Encounter Details Date Type Department Care Team (Late st Contact Info) Description 05/02/2005 Outpatient Historical [facility] [address] [facility] [address] [place] [address] Bryanna Diaz MD NO ADDRESS ON FILE Other Sign and Symptom in Breast (Primary Dx) Social History Tobacco Use Types Packs/Day Years Used Date Smoking Tobacco: Never Assessed Comments Unknown Sex and Gender Information Value Date Recorded Sex Assigned at Not on file Legal Sex Female 4:15 AM STILL RUNNER Gender Identity Not on file Sexual Orientation Not on file documented as of this encounter Plan of Treatment Not on file documented as of this encounter Visit Diagnoses Diagnosis Other sign and symptom in breast- Primary documented in this encounter Care Teams Community Facilitator Relationship Specialty Start Date End Date David Resendiz MD 805 [facility] 1 [place] [address] PCP - General 01/05/09 documented as of this encounter
--- OUTSIDE RECORDS SUMMARY | 2024-09-29 05:50 | XMS_ITS | Encounter Summary ---
Author Organization [facility] Address [address] [place] [address] Care Team Providers Care Chain Builder Name Role Phone David Resendiz MD Primary Care Provider [phone] Encounter Details Date Type Department Care Team (Late st Contact Info) Description 06/07/2006 Inpatient Historical [facility] Jose Ramirez MD NO ADDRESS ON FILE Carcinoma in Situ of Breast (Primary Dx) Social History Tobacco Use Types Packs/Day Years Used Date Smoking Tobacco: Never Assessed Comments Unknown Sex and Gender Information Value Date Recorded Sex Assigned at Not on file Legal Sex Female 4:15 AM OBJECTIVE C DEVELOPER Gender Identity Not on file Sexual Orientation Not on file documented as of this encounter Plan of Treatment Not on file documented as of this encounter Visit Diagnoses Diagnosis Carcinoma in situ of breast- Primary documented in this encounter Care Teams Chain Builder Relationship Specialty Start Date End Date David Resendiz MD [address] [facility] 1 [place] [phone] PCP - General 01/05/09 documented as of this encounter
--- OUTSIDE RECORDS SUMMARY | 2024-09-29 05:50 | XMS_ITS | Encounter Summary ---
Author Organization [facility] Address [address] [place] [address] Care Team Providers Care Ecotherapist Name Role Phone David Resendiz MD Primary Care Provider [phone] Encounter Details Date Type Department Care Team (Late st Contact Info) Description 06/09/2006 Outpatient Historical [facility] Gen Spec Surg [place] 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
--- OUTSIDE RECORDS SUMMARY | 2024-09-29 05:50 | XMS_ITS | Clinical Summary ---
Author Organization [facility] Address [address] [place] [address] Care Team Providers Care Rnp Name Role Phone David Resendiz MD Primary Care Provider Allergies No known active allergies Medications SYNTHROID 112 mcg Oral Tab Take 112 mcg by mouth daily. Active PRAVASTATIN 20 mg Oral Tab Take 20 mg by mouth Daily LATE. Active ASPIRIN 81 mg Oral Tab Take 81 mg by mouth daily. Active Cholecalciferol, Vitamin D3, 50,000 unit Oral Cap Take by mouth. Active losartan-hydroch lorothiazide (HYZAAR) 100-12.5 mg tablet Take 1 Tab by mouth daily. 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 06/17/2008 Immunizations Immunization Administration Dates Next Due Influenza Seasonal Unspecified Formulation IM Family History Medical History Relation Name Comments Heart Disease Brother Other Brother Other Father Other Mother Relation Name Status Comments Brother Father Mother Social History Tobacco Use Types Packs/Day Years Used Date Smoking Tobacco: Never Smokeless Tobacco: Never Alcohol Use Standard Drinks/Week Comments Not Asked 0 (1 standard drink = 0.6 oz pur e alcohol) Comments No Sex and Gender Information Value Date Recorded Sex Assigned at Not on file Legal Sex Female 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 Gender Identity Not on file Sexual Orientation Not on file Last Filed Vital Signs Vital Sign Reading Time Taken Comments Blood Pressure 138/64 06/30/2015 9:26 AM CDT Pulse 73 06/30/2015 9:26 AM CDT Temperature 36 C (96.8 F) 06/30/2015 9:26 AM CDT Respiratory Rate - - Oxygen Saturation 100% 06/30/2015 9:26 AM CDT Inhaled Oxygen Concentration - - Weight 79.8 kg (176 lb) 06/30/2015 9:26 AM CDT Height 160 cm (5' 3 ) 06/30/2015 9:26 AM CDT Body Mass Index 31.18 06/30/2015 9:26 AM CDT Plan of Treatment Health Maintenance Due Date Last Done Comments DTAP/TDAP/TD VACCINES (1 - Tdap) 05/04/1962 PNEUMOCOCCAL VACCINE 50+ YEARS (1 of 1 - PCV) 05/04/18 94 ZOSTER VACCINE (1 of 2) 05/04/1993 RSV VACCINE (60+ or ) (1 - 1-dose 75+ series) 05/04/2018 OSTEOPOROSIS SCREENING 05/18/2020 05/19/2015 INFLUENZA VACCINE (#1) 2024 11/16/2006 Insurance MEDICARE PART A AND B [facility] Care Teams Rnp Relationship Specialty Start Date End Date David Resendiz MD [address] [address] PCP - General 01/05/09
--- OUTSIDE RECORDS SUMMARY | 2024-09-29 05:50 | XMS_ITS | Encounter Summary ---
Author Organization [facility] Address [address] [place] [address] Care Team Providers Care Power Sweeper Operator Name Role Phone David Resendiz MD Primary Care Provider [phone] Encounter Details Date Type Department Care Team (Late st Contact Info) Description 11/24/2005 Outpatient Historical [facility] [address] [facility] [address] [place] [address] Rojelio Latif MD NO ADDRESS ON FILE Social History Tobacco Use Types Packs/Day Years Used Date Smoking Tobacco: Never Assessed Comments Unknown Sex and Gender Information Value Date Recorded Sex Assigned at Not on file Legal Sex Female 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
--- OUTSIDE RECORDS SUMMARY | 2024-09-29 05:50 | XMS_ITS | Encounter Summary ---
Author Organization [facility] Address [address] [place] [address] Care Team Providers Care Acquisitions Logistics Analyst Name Role Phone David Resendiz MD Primary Care Provider [phone] Encounter Details Date Type Department Care Team (Latest Contact Info) Description 05/16/2006 Outpatient [facility] [address] [place], [place] [address] Blayne Pena MD NO ADDRESS ON FILE Jay Helelr MD NO ADDRESS ON FILE Malignant Neoplasm of Breast (Female), Unspecified Site (CMS/HCC) (Primary Dx) Social History Tobacco Use Types Packs/Day Years Used Date Smoking Tobacco: Never Assessed Comments Unknown Sex and Gender Information Value Date Recorded Sex Assigned at Not on file Legal Sex Female 4:15 AM CLINICAL ADMINISTRATIVE COORDINATOR Gender Identity Not on file Sexual Orientation Not on file documented as of this encounter Plan of Treatment Not on file documented as of this encounter Visit Diagnoses Diagnosis Malignant neoplasm of breast (female), unspecified site- Primary documented in this encounter Care Teams Acquisitions Logistics Analyst Relationship Specialty Start Date End Date David Resendiz MD 805 [facility] 1 [place] [address] PCP - General 01/05/09 documented as of this encounter
--- OUTSIDE RECORDS SUMMARY | 2024-09-29 05:50 | XMS_ITS | Encounter Summary ---
Author Organization [facility] Address [address] [place] [address] Care Team Providers Care Polarity Tester Name Role Phone David Resendiz MD Primary Care Provider [phone] Encounter Details Date Type Department Care Team (Latest Contact Info) Description 04/24/2006 Outpatient Historical [facility] [address] [place] [address] Rojelio Latif MD NO ADDRESS ON FILE Malignant Neoplasm of Breast (Female), Unspecified Site (CMS/HCC) (Primary Dx) Social History Tobacco Use Types Packs/Day Years Used Date Smoking Tobacco: Never Assessed Comments Unknown Sex and Gender Information Value Date Recorded Sex Assigned at Not on file Legal Sex Female 4:15 AM 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
--- OUTSIDE RECORDS SUMMARY | 2024-09-29 05:50 | XMS_ITS | Encounter Summary ---
Author Organization [facility] Address [address] [place] [address] Care Team Providers Care Manager Compensation Name Role Phone David Resendiz MD Primary Care Provider [phone] Encounter Details Date Type Department Care Team (Latest Contact Info) Description 11/06/2006 Outpatient Historical [facility] [address] [place] [address] [address] [place] [address] Jay Heller MD NO ADDRESS ON FILE Malignant Neoplasm of Upper-Outer Quadrant of Female Breast (CMS/HCC) (Primary Dx) Social History Tobacco Use Types Packs/Day Years Used Date Smoking Tobacco: Never Assessed Comments Unknown Sex and Gender Information Value Date Recorded Sex Assigned at Not on file Legal Sex Female 4:15 AM JUICE STANDARDIZER Gender Identity Not on file Sexual Orientation Not on file documented as of this encounter Plan of Treatment Not on file documented as of this encounter Visit Diagnoses Diagnosis Malignant neoplasm of upper-outer quadrant of female breast (CMS/HCC)- Primary Malignant neoplasm of upper-outer quadrant of female breast documented in this encounter Care Teams Manager Compensation Relationship Specialty Start Date End Date David Resendiz MD [address] [facility] 1 [place] [address] PCP - General 01/05/09 documented as of this encounter
--- OUTSIDE RECORDS SUMMARY | 2024-09-29 05:50 | XMS_ITS | Encounter Summary ---
Author Organization [facility] Address [address] [place] [address] Care Team Providers Care Automatic Print Developer Name Role Phone David Resendiz MD Primary Care Provider [phone] Encounter Details Date Type Department Care Team (Latest Contact Info) Description 05/16/2006 Outpatient Historical [facility] [address] [facility] [address] [place] [address] Blayne Pena MD NO ADDRESS ON FILE CA in Situ Breast (Primary Dx); Fat Necrosis of Breast Social History Tobacco Use Types Packs/Day Years Used Date Smoking Tobacco: Never Assessed Comments Unknown Sex and Gender Information Value Date Recorded Sex Assigned at Not on file Legal Sex Female 4:15 AM SCIENTIFIC HELPER Gender Identity Not on file Sexual Orientation Not on file documented as of this encounter Plan of Treatment Not on file documented as of this encounter Visit Diagnoses Diagnosis CA in situ breast- 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
--- OUTSIDE RECORDS SUMMARY | 2024-09-29 05:50 | XMS_ITS | Encounter Summary ---
Author Organization [facility] Address [address] [place] [address] Care Team Providers Care Tentering Machine Off Bearer Name Role Phone David Resendiz MD Primary Care Provider [phone] Encounter Details Date Type Department Care Team (Late st Contact Info) Description 10/27/2005 Outpatient Historical [facility] [address] [place] [address] Social History Tobacco Use Types Packs/Day Years Used Date Smoking Tobacco: Never Assessed Comments Unknown Sex and Gender Information Value Date Recorded Sex Assigned at Not on file Legal Sex Female 4:15 AM SHOVEL LOG LOADER OPERATOR Gender Identity Not on file Sexual Orientation Not on file documented as of this encounter Plan of Treatment Not on file documented as of this encounter Visit Diagnoses Not on filedocumented in this encounter Care Teams Tentering Machine Off Bearer Relationship Specialty Start Date End Date David Resendiz MD [address] [facility] 1 [place] [address] PCP - General 01/05/09 documented as of this encounter
--- OUTSIDE RECORDS SUMMARY | 2024-09-29 05:50 | XMS_ITS | Patient Health Record ---
Author Organization [facility] Address [address] [place] [address] Care Team Providers Care Leather Sponger Name Role Phone David Resendiz MD Primary Care Provider Ced SANDERSESTEPHANIA FUENTES Unavailable [phone] HANK ROJAS Unavailable [phone] Allergies Allergen (clinical drug ingredient) Drug/Non Drug Allergy documented on EMR Reaction Allergy Type Onset Date Status alendronate Alendronate Sodium , , Drug Allergy Active aspirin Aspirin , Drug Allergy Active sulfamethoxazole / trimethoprim Bactrim allergy Drug Allergy Active Ciprofloxacin allergy Drug Allergy Act windy hydromorphone HYDROmorphone HCl allergy Drug Allergy Active paroxetine Paxil allergy Drug Allergy Active Iodinated I 131 Albumin allergy Drug Allergy Active clindamycin Clindamycin , Drug Allergy Act windy Results Component Value Reference Range Notes Urinalysis, Routine Reviewed date:11/08/2023 10:18:33 AM Interpretation: Performing Lab: Notes/Report: Urine-Color yellow Appearance clear Glucose - Bilirubin - Ketones - Specific Junction 1.020 Occult Blood - pH 6.0 Urine Protein - Urobilinogen,Semi-Qn - Nitrite, Urine - WBC Esterase 2+ Urinalysis Gross Exam - Reason For Referral No Information Medications Medication SIG (Take, Route, Frequency, Duration) Notes Start Date End Date Status Levothyroxine Sodium 0.1 MG Oral Tablet Levothyroxine Sodium 0.1 MG Oral Tablet *Reorder from [employer]me for eRx and Interaction Alerts* 7 Active Hydrochlorothiazide 12.5 MG / Losartan Potassium 100 MG Oral Tablet Hydrochlorothiazide 12.5 MG / Losartan Potassium 100 MG Oral Tablet *Reorder from [employer] for eRx and Interaction Alerts* 5 Active Levothyroxine Sodium 0.112 MG Oral Tablet Levothyroxine Sodium 0.112 MG Oral Tablet *Reorder from Tellme for eRx and Interaction Alerts* 2 Not-Takin g Pravastatin Sodium 20 MG Oral Tablet Pravastatin Sodium 20 MG Oral Tablet *Reorder from [employer]me for eRx and Interaction Alerts* 2 Active Vitamin D3 Active Problems Problem Type SNOMED Code ICD Code Onset Dates Problem Status W/U Status Risk Notes Problem Personal history of primary malignant neoplasm of breast (985942743) History of breast cancer (Z85.3) Active confirmed Problem History of gastrointestinal disease (769833538) History of constipation (Z87.19) Active confirmed Problem Chronic cystitis (72309351) Chronic cystitis (N30.20) Active confirmed Problem Recurrent urinary tract infection (799908269) Recurrent UTI (N39.0) Active confirmed Vital Signs Heart Rate 51 /min 11/08/2023 Blood pressure diastolic 67 mm Hg 11/08/2023 Weight-kg 61.23 kg 11/08/2023 Height 61 in 11/08/2023 Blood pressure systolic 134 mm Hg 11/08/2023 Weight 135 lbs 11/08/2023 BMI 25.51 kg/m2 11/08/2023 Procedures Procedure Date Ordered Date Performed Result Body Sit e Bladder Scan 11/08/2023 11/08/2023 N/A Encounters Encounter Location Date Provider Diagnosis [facility] Urology, [facility] [address] [place] [address] 11/08/2023 HANK ROJAS History of breast cancer Z85.3 and Recurrent UTI N39.0 Assessments Encounter Date Diagnosis (ICD Code) Assessment Notes Treatment Notes Treatment Clinical Notes Section Notes 11/08/2023 History of breast cancer (ICD-10 - Z85.3) 11/08/2023 Recurrent UTI (ICD-10 - N39.0) Pt doing very well without breakthrough UTI in the last 6m. She is asymptomatic today. Will continue bladder health regimen and expectant management. RTC in 1 year with UA/PVR or sooner if needed. Plan Of Treatment Pending Test Test Name Order Date Bladder Scan 03/01/2023 Insurance Providers Payer Name Payer Address Payer Phone Subscriber Number Group Number Insured Name Patient Relationship to Insured Coverage Start Date Coverage End Date [place] [address] [address] [place], [place] [id number] Anish Dockery Self - patient is the insured [employer] [address] [address] AFSHAN MCCRAY [id number] Anish Docekry Self - patient is the insured Medical (General) History Medical History History ICD Code Problem:Anxiety (finding) , Status :: Ac tive Problem:Atrophic vaginitis (disorder) , Status :: Active 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
--- OUTSIDE RECORDS SUMMARY | 2024-09-29 05:50 | XMS_ITS | Encounter Summary ---
Author Organization [facility] Address [address] [place] [address] Care Team Providers Care Imaging Services Director Name Role Phone David Resendiz MD Primary Care Provider [phone] Encounter Details Date Type Department Care Team (Late st Contact Info) Description 05/26/2006 Outpatient Historical [facility] Spec [facility]urg [place] [address] [facility] [address] [place] [address] Jose Ramirez MD NO ADDRESS ON FILE CA in Situ Breast (Primary Dx) Social History Tobacco Use Types Packs/Day Years Used Date Smoking Tobacco: Never Assessed Comments Unknown Sex and Gender Information Value Date Recorded Sex Assigned at Not on file Legal Sex Female 4:15 AM STRIP PRESSER Gender Identity Not on file Sexual Orientation Not on file documented as of this encounter Plan of Treatment Not on file documented as of this encounter Visit Diagnoses Diagnosis 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
--- OUTSIDE RECORDS SUMMARY | 2024-09-29 05:50 | XMS_ITS | Encounter Summary ---
Author Organization [facility] Address [address] [place] [address] Care Team Providers Care Field Sales Agent Name Role Phone David Resendiz MD Primary Care Provider [phone] Encounter Details Date Type Department Care Team (Latest Contact Info) Description 11/07/2005 Outpatient Historical [facility] Jay Heller MD NO ADDRESS ON FILE Other Follow-Up Examination (Primary Dx) Social History Tobacco Use Types Packs/Day Years Used Date Smoking Tobacco: Never Assessed Comments Unknown Sex and Gender Information Value Date Recorded Sex Assigned at Not on file Legal Sex Female 4:15 AM MAT TESTER Gender Identity Not on file Sexual Orientation Not on file documented as of this encounter Plan of Treatment Not on file documented as of this encounter Visit Diagnoses Diagnosis Other follow-up examination(V67.59)- Primary Other follow-up examination documented in this encounter Care Teams Field Sales Agent Relationship Specialty Start Date End Date David Resendiz MD 805 [facility] 1 [place] [address] PCP - General 01/05/09 documented as of this encounter
--- OUTSIDE RECORDS SUMMARY | 2024-09-29 05:50 | XMS_ITS | Encounter Summary ---
Author Organization [facility] Address [address] [place] [address] Care Team Providers Care Network Firewall Engineer Name Role Phone David Resendiz MD Primary Care Provider [phone] Encounter Details Date Type Department Care Team (Latest Contact Info) Description 05/17/2007 Outpatient Historical [facility] Radiosurgery Cancer Center [facility] [address] [place] [address] Rojelio Latif MD NO ADDRESS ON FILE Malignant Neoplasm of Breast (Female), Unspecified Site (CMS/HCC) Social History Tobacco Use Types Packs/Day Years Used Date Smoking Tobacco: Never Assessed Comments Unknown Sex and Gender Information Value Date Recorded Sex Assigned at Not on file Legal Sex Female 4:15 AM SOCIAL AND POLITICAL STUDIES PROFESSOR Gender Identity Not on file Sexual Orientation Not on file documented as of this encounter Plan of Treatment Not on file documented as of this encounter Visit Diagnoses Diagnosis Malignant neoplasm of breast (female), unspecified site documented in this encounter Care Teams Network Firewall Engineer Relationship Specialty Start Date End Date David Resendiz MD [address] [facility] [place] [phone] PCP - General 01/05/09 documented as of this encounter
--- OUTSIDE RECORDS SUMMARY | 2024-09-29 05:50 | XMS_ITS | Encounter Summary ---
Author Organization [facility] Address [address] [place] [address] Care Team Providers Care Elastic Attacher Coverstitch Name Role Phone David Resendiz MD Primary Care Provider [phone] Encounter Details Date Type Department Care Team (Late st Contact Info) Description 05/19/2005 Outpatient Historical [facility] Radiosurgery Cancer Center [address] [facility] [address] [place] [address] Nick Handy MD [address] [facility] [address] [place] [phone] Social History Tobacco Use Types Packs/Day Years Used Date Smoking Tobacco: Never Assessed Comments Unknown Sex and Gender Information Value Date Recorded Sex Assigned at Not on file Legal Sex Female 4:15 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
--- OUTSIDE RECORDS SUMMARY | 2024-09-29 05:50 | XMS_ITS | Encounter Summary ---
Author Organization [facility] Address [address] [place] [address] Care Team Providers Care School Bus Driver/Custodian Name Role Phone David Resendiz MD Primary Care Provider [phone] Encounter Details Date Type Department Care Team (Late st Contact Info) Description 11/07/2006 Outpatient Historical [facility] [address] [place] [address] Social History Tobacco Use Types Packs/Day Years Used Date Smoking Tobacco: Never Assessed Comments Unknown Sex and Gender Information Value Date Recorded Sex Assigned at Not on file Legal Sex Female 4:15 AM EXTRUDER OPERATOR MULTIPLE Gender Identity Not on file Sexual Orientation Not on file documented as of this encounter Plan of Treatment Not on file documented as of this encounter Visit Diagnoses Not on filedocumented in this encounter Care Teams School Bus Driver/Custodian Relationship Specialty Start Date End Date David Resendiz MD [address] [facility] 1 [place] [address] PCP - General 01/05/09 documented as of this encounter
--- OUTSIDE RECORDS SUMMARY | 2024-09-29 05:50 | XMS_ITS | Encounter Summary ---
Author Organization [facility] Address [address] [place] [address] Care Team Providers Care Supervising Deputy Name Role Phone David Resendiz MD Primary Care Provider [phone] Encounter Details Date Type Department Care Team (Late st Contact Info) Description 06/16/2006 Outpatient Historical [facility] Gen Spec Surg [place] [address] [facility] [address] [place] [address] Jose Ramirez MD NO ADDRESS ON FILE Malignant Neoplasm of Breast (Female), Unspecified Site (CMS/HCC) (Primary Dx); Follow-Up Examination, Following Unspecified Surgery Social History Tobacco Use Types Packs/Day Years Used Date Smoking Tobacco: Never Assessed Comments Unknown Sex and Gender Information Value Date Recorded Sex Assigned at Not on file Legal Sex Female 4:15 AM LAST CODE STRIPER Gender Identity Not on file Sexual Orientation Not on file documented as of this encounter Plan of Treatment Not on file documented as of this encounter Visit Diagnoses Diagnosis Malignant neoplasm of breast (female), unspecified site- Primary Follow-up examination, following unspecified surgery documented in this encounter Care Teams Supervising Deputy Relationship Specialty Start Date End Date David Resendiz MD 805 [facility] 1 [place] [phone] PCP - General 01/05/09 documented as of this encounter
--- OUTSIDE RECORDS SUMMARY | 2024-09-29 05:50 | XMS_ITS | Encounter Summary ---
Author Organization [facility] Address [address] [place] [address] Care Team Providers Care Masonry Contractor Name Role Phone David Resendiz MD Primary Care Provider [phone] Encounter Details Date Type Department Care Team (Latest Contact Info) Description 04/18/2005 Outpatient [facility] Breast Center [facility] [address] [place] [address] Sanya Coyle MD NO ADDRESS ON FILE Other Screening Mammogram (Primary Dx) Social History Tobacco Use Types Packs/Day Years Used Date Smoking Tobacco: Never Assessed Comments Unknown Sex and Gender Information Value Date Recorded Sex Assigned at Not on file Legal Sex Female 4:15 AM MATERIALS MANAGEMENT MANAGER Gender Identity Not on file Sexual Orientation Not on file documented as of this encounter Plan of Treatment Not on file documented as of this encounter Visit Diagnoses Diagnosis Other screening mammogram- Primary documented in this encounter Care Teams Masonry Contractor Relationship Specialty Start Date End Date aDvid Resendiz MD 5 [facility] 1 [place] [phone] PCP - General 01/05/09 documented as of this encounter
--- OUTSIDE RECORDS SUMMARY | 2024-09-29 05:50 | XMS_ITS | Encounter Summary ---
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 Breast (CMS/HCC) (Primary Dx) Social History Tobacco Use Types Packs/Day Years Used Date Smoking Tobacco: Never Assessed Comments Unknown Sex and Gender Information Value Date Recorded Sex Assigned at Not on file Legal Sex Female 4:15 AM WORK STATION SUPPORT SPECIALIST Gender Identity Not on file Sexual Orientation Not on file documented as of this encounter Plan of Treatment Not on file documented as of this encounter Visit Diagnoses Diagnosis Malignant neoplasm of upper-outer quadrant of female breast (CMS/HCC)- Primary Malignant neoplasm of upper-outer quadrant of female breast documented in this encounter Care Teams Information Services Tech Relationship Specialty Start Date End Date David Resendiz MD [address] [facility] 1 [place] [address] PCP - General 01/05/09 documented as of this encounter
--- OUTSIDE RECORDS SUMMARY | 2024-09-29 05:50 | XMS_ITS | Clinical Summary ---
Author Organization [facility] Address [address] [facility] Attn: [place] [address] Care Team Providers Care Pig Lead Melter Helper Name Role Phone David Resendiz MD Primary Care Provider [phone] Allergies No known active allergies Medications losartan-hydroCH LOROthiazide (HYZAAR) 100-12.5 mg tablet Take 1 Tab by mouth daily. 06/24/2014 Active Active Problems Problem Noted Date Diagnosed [...] = 0.6 oz pur e alcohol) Comments Unknown Sex and Gender Information Value Date Recorded Sex Assigned at Not on file Legal Sex Female 4:02 PM HOSIERY LOOPER Gender Identity Not on file Sexual Orientation Not on file Last Filed Vital Signs Vital Sign Reading Time Taken Comments Blood Pressure 138/64 06/30/2015 9:26 AM CDT Pulse 73 06/30/2015 9:26 AM CDT Temperature 36 C (96.8 F) 06/30/2015 9:26 AM CDT Respiratory Rate - - Oxygen Saturation - - Inhaled Oxygen Concentration - - Weight 79.8 [...] 05/18/2020 05/19/2015 INFLUENZA VACCINE (#1) 2024 11/16/2006 Care Teams Pig Lead Melter Helper Relationship Specialty Start Date End Date David Resendiz MD [address] [phone] PCP - General 01/05/09
--- OUTSIDE RECORDS SUMMARY | 2024-09-29 05:50 | XMS_ITS | Encounter Summary ---
Author Organization [facility] Address [address] [place] [address] Care Team Providers Care Corporate Quality Assurance Manager Name Role Phone David Resendiz MD Primary Care Provider [phone] Encounter Details Date Type Department Care Team (Latest Contact Info) Description 05/08/2006 Outpatient Historical [facility] Cancer and Hematology [address] [place] [address] [address] [place] [address] Bindu Gibson FNP NO ADDRESS ON FILE Malignant Neoplasm of Upper-Outer Quadrant of Female Breast (CMS/HCC) (Primary Dx) Social History Tobacco Use Types Packs/Day Years Used Date Smoking Tobacco: Never Assessed Comments Unknown Sex and Gender Information Value Date Recorded Sex Assigned at Not on file Legal Sex Female 4:15 AM FUNERAL HOME ASSISTANT Gender Identity Not on file Sexual Orientation Not on file documented as of this encounter Plan of Treatment Not on file documented as of this encounter Visit Diagnoses Diagnosis Malignant neoplasm of upper-outer quadrant of female breast (CMS/HCC)- Primary Malignant neoplasm of upper-outer quadrant of female breast documented in this encounter Care Teams Corporate Quality Assurance Manager Relationship Specialty Start Date End Date David Resendiz MD 805 [facility] 1 [place] [address] PCP - General 01/05/09 documented as of this encounter
--- OUTSIDE RECORDS SUMMARY | 2024-09-29 05:50 | XMS_ITS | Encounter Summary ---
Author Organization [facility] Address [address] [place] [address] Care Team Providers Care Emergency Service Worker Name Role Phone David Resendiz MD Primary Care Provider [phone] Encounter Details Date Type Department Care Team (Latest Contact Info) Description 05/08/2006 Outpatient [facility] Breast Center [facility] [address] [place] [address] Jay Heller MD NO ADDRESS ON FILE Other Abnormal Findings on Radiological Examination of Breast (Primary Dx) Social History Tobacco Use Types Packs/Day Years Used Date Smoking Tobacco: Never Assessed Comments Unknown Sex and Gender Information Value Date Recorded Sex Assigned at Not on file Legal Sex Female 4:15 AM AIRCRAFT 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
--- OUTSIDE RECORDS SUMMARY | 2024-09-29 05:50 | XMS_ITS | Encounter Summary ---
Author Organization [facility] Address [address] [place] [address] Care Team Providers Care Fluxer Name Role Phone David Resendiz MD Primary Care Provider [phone] Encounter Details Date Type Department Care Team (Late st Contact Info) Description 05/08/2006 Outpatient Historical [facility] [address] [facility] [address] [place] [address] Bryanna Diaz MD NO ADDRESS ON FILE Other Sign and Symptom in Breast (Primary Dx) Social History Tobacco Use Types Packs/Day Years Used Date Smoking Tobacco: Never Assessed Comments Unknown Sex and Gender Information Value Date Recorded Sex Assigned at Not on file Legal Sex Female 4:15 AM FOOD BROKER Gender Identity Not on file Sexual Orientation Not on file documented as of this encounter Plan of Treatment Not on file documented as of this encounter Visit Diagnoses Diagnosis Other sign and symptom in breast- Primary documented in this encounter Care Teams Fluxer Relationship Specialty Start Date End Date David Resendiz MD 805 [facility] 1 [place] [address] PCP - General 01/05/09 documented as of this encounter
--- OUTSIDE RECORDS SUMMARY | 2024-09-29 05:50 | XMS_ITS | Encounter Summary ---
Author Organization [facility] Address [address] [place] [address] Care Team Providers Care Practice Management Consultant Name Role Phone David Resendiz MD Primary Care Provider Encounter Details Date Type Department Care Team (Latest Contact Info) Description 10/24/2005 Outpatient Historical [facility] Radiosurgery Cancer Center [address] [place] [address] [address] [place] [address] Rojelio Latif MD NO ADDRESS ON FILE Carcinoma in Situ of Breast (Primary Dx) Social History Tobacco Use Types Packs/Day Years Used Date Smoking Tobacco: Never Assessed Comments Unknown Sex and Gender Information Value Date Recorded Sex Assigned at Not on file Legal Sex Female 4:15 AM NIGHT COORDINATOR Gender Identity Not on file Sexual Orientation Not on file documented as of this encounter Plan of Treatment Not on file documented as of this encounter Visit Diagnoses Diagnosis Carcinoma in situ of breast- Primary documented in this encounter Care Teams Practice Management Consultant Relationship Specialty Start Date End Date David Resendiz MD 5 [facility] 1 [place] [address] PCP - General 01/05/09 documented as of this encounter
--- OUTSIDE RECORDS SUMMARY | 2024-09-29 05:50 | XMS_ITS | Encounter Summary ---
Author Organization [facility] Address [address] [place] [address] Care Team Providers Care Employee Health Rn Name Role Phone David Resendiz MD Primary Care Provider Encounter Details Date Type Department Care Team (Latest Contact Info) Description 11/07/[address] [facility] [address] [facility] [address] [place] [address] Garima Prakash MD NO ADDRESS ON FILE Other Sign and Symptom in Breast (Primary Dx) Social History Tobacco Use Types Packs/Day Years Used Date Smoking Tobacco: Never Assessed Comments Unknown Sex and Gender Information Value Date Recorded Sex Assigned at Not on file Legal Sex Female 4:15 AM SUPERVISOR CARPENTERS Gender Identity Not on file Sexual Orientation Not on file documented as of this encounter Plan of Treatment Not on file documented as of this encounter Visit Diagnoses Diagnosis Other sign and symptom in breast- Primary documented in this encounter Care Teams Employee Health Rn Relationship Specialty Start Date End Date David Resendiz MD 805 [facility] 1 [place] [address] PCP - General 01/05/09 documented as of this encounter
--- OUTSIDE RECORDS SUMMARY | 2024-09-29 05:50 | XMS_ITS | Encounter Summary ---
Author Organization [facility] Address [address] [place] [address] Care Team Providers Care Inventory Accountant Name Role Phone David Resendiz MD Primary Care Provider [phone] Encounter Details Date Type Department Care Team (Late st Contact Info) Description 03/05/2007 [facility]patient [facility] [address] [facility] [address] [place] [address] Jay Heller MD NO ADDRESS ON FILE Social History Tobacco Use Types Packs/Day Years Used Date Smoking Tobacco: Never Assessed Comments Unknown Sex and Gender Information Value Date Recorded Sex Assigned at Not on file Legal Sex Female 4:15 AM PREFLIGHT INSPECTOR Gender Identity Not on file Sexual Orientation Not on file documented as of this encounter Progress Notes * Bindu Gibson 03/05/2007 12:00 AM CST Patient Name: Anish Dockery DOS: 03/05/2007 : 1945 CHIEF COMPLAINT: Ductal carcinoma in situ, 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 HISTORY OF PRESENT ILLNESS: This is a 61 year old female patient of Dr. Heller who was initially diagnosed with carcinoma in situ in 02/16. She was seen by Dr. Sanya Coyle. She elected to proceedwith Tamoxifen after having had a lumpectomy and radiation therapy. 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 At this time she elected to have bilateral mastectomies. She was started on Arimidex which she stopped in 06/19. She now is being followed on a regular basis. Her last visit with Dr. Heller was in 10/20. She states that she has not had any new problems since that time. She has had a flair of her psoriasis. She is followed by a remotely piloted vehicle controller who comes up out of [facility] clinic in [place]. ALLERGIES: Barbital, Paxil, and clindamycin. PRESENT MEDICATIONS: She is on Benicar, Synthroid. SOCIAL HISTORY: She is and lives in [place]. She is accompanied by her . She hasowned a GCW. REVIEW OF SYSTEMS: She states she has had no recent problems with fevers, chills, or night sweats, sores in her mouth, swallowing difficulty, nausea or vomiting, change in bowel or bladder status, leg pain or swelling. She still has some tenderness occasionally in her left mastectomy incision. She has not noted any local lesions. Her greatest complaint is the flair with her psoriasis which is mainly on her upper extremities, large patch across her shoulders, and scattered around her back and pelvis area. The physician wants to give her an injection of Prednisone but she does not want to proceed with that action. She is using different lotions and creams as well as TAR shampoo based preparation. PHYSICAL EXAMINATION: Blood pressure 130/70, pulse 80, temperature 98.3. She denies pain. Weight is178.6 up 4.5 pounds from last visit. Patient is alert and oriented, in no acute distress. Oral pharynx was clear of any lesions. Neck is supple. Breath sounds are clear in all browne. Heart sounds are regular without rubs or gallops. Bilateral mastectomy incisions are healed although she has slightdried skin, scaliness over both incisions. Abdomen is rounded, soft and nontender. She has multiplelarge patches of psoriasis noted on her upper extremity, shoulders, and pelvis with small scatteredareas on other regions. No calf tenderness. Mild swelling in the feet and ankles. Gait is steady. LABORATORY/X-RAY DATA: White count 6,500, hemoglobin 13.7, platelets 237,000 with granulocytes at 3.5. CMP potassium 3.4 at same value as noted before with remainder normal. IMPRESSION: 1. Two separate episodes of breast cancer, one diagnosis in late 2002, the second in 2004, bilateral mastectomies with no clinical evidence of recurrence. 2. Psoriasis being managed by remotely piloted vehicle controller with flair of her symptoms this winter. PLAN: I spoke with Dr. Heller. He reviewed her blood work. At this point he recommended that we keep her on a three month follow up. She is aware to continue doing self chest wall exams and to report any symptoms of concern. I am giving her a copy of her blood work so that she can take this to her family doctor in [place]. I encouraged her to be sure and keep her appointment with the remotely piloted vehicle controller for evaluation of her psoriasis since it is more severe. She is in agreement with this plan. Time spent 25 minutes with over 50% of time spent in counseling. Complexity is high. [facility] Electronically Signed by KATHRINE Murphy 03/12/2007 17:59 , 2:24 P A, 425 Document #: [id number] cc: Alden Cullen M.D. LIGHT INSPECTOR documented in this encounter Plan of Treatment Not on file documented as of this encounter Visit Diagnoses Not on filedocumented in this encounter Care Teams Inventory Accountant Relationship Specialty Start Date End Date David Resendiz MD [address] [phone] PCP - General 01/05/09 documented as of this encounter
--- OUTSIDE RECORDS SUMMARY | 2024-09-29 05:51 | XMS_ITS | Encounter Summary ---
Author Organization [facility] Address [address] [place] [address] Care Team Providers Care Statistical Analyst Name Role Phone David Resendiz MD Primary Care Provider [phone] Encounter Details Date Type Department Care Team (Late st Contact Info) Description 06/23/2006 Outpatient Historical [facility] Gen Spec Surg [place] [address] [facility] [address] [place] [address] Jose Ramirez MD NO ADDRESS ON FILE Malignant Neoplasm of Breast (Female), Unspecified Site (CMS/HCC) (Primary Dx); Follow-Up Examination, Following Unspecified Surgery Social History Tobacco Use Types Packs/Day Years Used Date Smoking Tobacco: Never Assessed Comments Unknown Sex and Gender Information Value Date Recorded Sex Assigned at Not on file Legal Sex Female 4:15 AM METER READER Gender Identity Not on file Sexual Orientation Not on file documented as of this encounter Plan of Treatment Not on file documented as of this encounter Visit Diagnoses Diagnosis Malignant neoplasm of breast (female), unspecified site- Primary Follow-up examination, following unspecified surgery documented in this encounter Care Teams Statistical Analyst Relationship Specialty Start Date End Date David Resendiz MD [address] [facility] 1 [place] [phone] PCP - General 01/05/09 documented as of this encounter
--- OUTSIDE RECORDS SUMMARY | 2024-09-29 05:51 | XMS_ITS | Encounter Summary ---
Author Organization [facility] Address [address] [place] [address] Care Team Providers Care Die Stamper Name Role Phone David Resendiz MD Primary Care Provider [phone] Encounter Details Date Type Department Care Team (Latest Contact Info) Description 04/18/2005 Outpatient Historical [facility] Radiosurgery Cancer Center [address] [facility] [address] [place] [address] Nick Handy MD [address] [facility] [address] [facility] [address] [place] [address] Malignant Neoplasm of Breast (Female), Unspecified Site (CMS/HCC) (Primary Dx) Social History Tobacco Use Types Packs/Day Years Used Date Smoking Tobacco: Never Assessed Comments Unknown Sex and Gender Information Value Date Recorded Sex Assigned at Not on file Legal Sex Female 4:15 AM CLAY HOISTER Gender Identity Not on file Sexual Orientation Not on file documented as of this encounter Plan of Treatment Not on file documented as of this encounter Visit Diagnoses Diagnosis Malignant neoplasm of breast (female), unspecified site- Primary documented in this encounter Care Teams Die Stamper Relationship Specialty Start Date End Date David Resendiz MD [address] [facility] 1 [place] [address] PCP - General 01/05/09 documented as of this encounter
--- OUTSIDE RECORDS SUMMARY | 2024-09-29 05:51 | XMS_ITS | Encounter Summary ---
Author Organization [facility] Address [address] [place] [address] Care Team Providers Care Property Handler Name Role Phone David Resendiz MD Primary Care Provider [phone] Encounter Details Date Type Department Care Team (Latest Contact Info) Description 05/02/2005 Outpatient Historical [facility] Nick Handy MD [address] [place] [address] Mammographic Microcalcification (Primary Dx) Social History Tobacco Use Types Packs/Day Years Used Date Smoking Tobacco: Never Assessed Comments Unknown Sex and Gender Information Value Date Recorded Sex Assigned at Not on file Legal Sex Female 4:15 AM SERVICE WRITER Gender Identity Not on file Sexual Orientation Not on file documented as of this encounter Plan of Treatment Not on file documented as of this encounter Visit Diagnoses Diagnosis Mammographic microcalcification- Primary documented in this encounter Care Teams Property Handler Relationship Specialty Start Date End Date David Resendiz MD [address] [facility] [address] [place] [address] PCP - General 01/05/09 documented as of this encounter
--- OUTSIDE RECORDS SUMMARY | 2024-09-29 05:51 | XMS_ITS | Encounter Summary ---
Author Organization [facility] Address [address] [place] [address] Care Team Providers Care Bakelite Molder Name Role Phone David Resendiz MD Primary Care Provider Encounter Details Date Type Department Care Team (Latest Contact Info) Description 04/18/2005 Outpatient Historical [facility] H[facility]ology [address] [place] [address] [address] [place] [address] Jay Heller MD NO ADDRESS ON FILE Malignant Neoplasm of Upper-Outer Quadrant of Female Breast (CMS/HCC) (Primary Dx) Social History Tobacco Use Types Packs/Day Years Used Date Smoking Tobacco: Never Assessed Comments Unknown Sex and Gender Information Value Date Recorded Sex Assigned at Not on file Legal Sex Female 4:15 AM MECHANICAL RELIABILITY ENGINEER Gender Identity Not on file Sexual Orientation Not on file documented as of this encounter Plan of Treatment Not on file documented as of this encounter Visit Diagnoses Diagnosis Malignant neoplasm of upper-outer quadrant of female breast (CMS/HCC)- Primary Malignant neoplasm of upper-outer quadrant of female breast documented in this encounter Care Teams Bakelite Molder Relationship Specialty Start Date End Date David Resendiz MD [address] [facility] 1 [place] [address] PCP - General 01/05/09 documented as of this encounter
--- OUTSIDE RECORDS SUMMARY | 2024-09-29 05:51 | XMS_ITS | Patient Health Record ---
Author Organization [facility] Address [address] [place] [address] Care Team Providers Care Nail Expert Name Role Phone Martín MEDINA, David Primary Care Provider Francie Weldon [phone] Allergies Allergen (clinical drug ingredient) Drug/Non Drug Allergy documented on EMR Reaction Allergy Type Onset Date Status alendronate Alendronate Sodium , , Drug Allergy Active aspirin Aspirin , Drug Allergy Active clindamycin Clindamycin , Drug Allergy Act windy Reason For Referral No Information Medications Medication SIG (Take, Route, Frequency, Duration) Notes Start Date End Date Status Hydrochlorothiazide 12.5 MG / Losartan Potassium 100 MG Oral Tablet Hydrochlorothiazide 12.5 MG / Losartan Potassium 100 MG Oral Tablet 5 02/13/18 Active Levothyroxine Sodium 0.1 MG Oral Tablet Levothyroxine Sodium 0.1 MG Oral Tablet 7 02/13/18 Active Levothyroxine Sodium 0.112 MG Oral Tablet Levothyroxine Sodium 0.112 MG Oral Tablet 2 02/13/18 Active Pravastatin Sodium 20 MG Oral Tablet Pravastatin Sodium 20 MG Oral Tablet 2 02/13/18 Active Social History Social History Additional Details Category Social Info Options Details zzMigrated Social History Migrated Social History Smoking Status:Never smoked tobacco (finding) Plan Of Treatment No Information Insurance Providers Payer Name Payer Address Payer Phone Subscriber Number Group Number Insured Name Patient Relationship to Insured Coverage Start Date Coverage End Date [place] [address] [address] [place] [address] [id number] Anish Dockery Self - patient is the insured [employer] [address] [address] [place] [address] [id number] Anish Dockery Self - patient is the insured
--- OUTSIDE RECORDS SUMMARY | 2024-09-29 05:51 | XMS_ITS | Encounter Summary ---
Author Organization [facility] Address [address] [place] [address] Care Team Providers Care Career And Transition Teacher Name Role Phone David Resendiz MD Primary Care Provider [phone] Encounter Details Date Type Department Care Team (Late st Contact Info) Description 06/30/2006 Outpatient Historical [facility] Gen Spec [facility]urg [place] [address] [facility] [address] [place] [address] Jose Ramirez MD NO ADDRESS ON FILE CA in Situ Breast (Primary Dx); Benign Joshua Lymph Nodes; Follow-Up Examination, Following Unspecified Surgery Social History Tobacco Use Types Packs/Day Years Used Date Smoking Tobacco: Never Assessed Comments Unknown Sex and Gender Information Value Date Recorded Sex Assigned at Not on file Legal Sex Female 4:15 AM APPLICATION SUPPORT ENGINEER Gender Identity Not on file Sexual Orientation Not on file documented as of this encounter Plan of Treatment Not on file documented as of this encounter Visit Diagnoses Diagnosis 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
[2024-09-29 05:58] VITALS: BP 179/78; PULSE 63; RESP 18; TEMP 36.9; O2SAT 98; BMI 25.0
--- NOTE | 2024-09-29 06:21 | ED_ITS ---
HPI - Nausea/Vomiting/Diarrhea 2 General: Chief complaint: Nausea/Vomiting/Diarrhea Stated complaint: Nausea Time Seen by Provider: 09/29/24 05:57 History of Present Illness: Chief complaint is nausea. The patient states that she has had some burning and frequency of urination for the last 3 days. Nausea started 2 days ago. No vomiting. She went to urgent care and was prescribed antibiotic and cranberry pills. She states she had the nausea prior to taking these. Her nausea has not gotten any better so she came here. Related Data Home Medications ?Medication ?Instructions ?Recorded ?Confirmed levothyroxine 100 mcg tablet 07/06/19 05/19/22 (Synthroid) losartan 100 mg tablet 07/06/19 05/19/22 cholecalciferol (vitamin D3) 50 50 mcg PO DAILY 05/19/22 mcg (2,000 unit) capsule hydrochlorothiazide 12.5 mg tablet 12.5 mg PO DAILY 05/19/22 levothyroxine 112 mcg capsule 112 mcg PO .TAKES ON Mon05/19/22 05/19/22 Previous Rx's ?Medication ?Instructions ?Recorded hydroxyzine HCl 25 mg tablet 25 mg PO QID PRN prn anxi ety #20 05/11/20 tabs ondansetron 4 mg disintegrating 4 mg PO Q8H PRN nausea and 08/16/22 tablet vomiting #15 tabs ondansetron 4 mg disintegrating 4 mg PO Q6H PRN nausea and 02/12/23 tablet vomiting #14 tabs cefdinir 300 mg capsule 300 mg PO BID 7 days #14 cap s 09/29/24 ondansetron 4 mg disintegrating 4 mg PO Q8H PRN nausea and 09/29/24 tablet vomiting 4 days #10 tabs Allergies Allergy/AdvReac Type Severity Reaction Status Date / Time Barbiturates Allergy Unknown Unknown Verified 05/19/22 12:55 clindamycin Allergy Unknown Unknown Verified 05/19/22 12:55 paroxetine (From Paxil) Allergy Unknown Unknown Verified 05/19/22 12:55 Sulfa (Sulfonamide Allergy Unknown Unknown Verified 05/19/22 12:55 Antibiotics) ciprofloxacin (From Cipro) Allergy rash Verified 05/19/22 12:55 hydromorphone Allergy ADR/ALGY-Hy Verified 05/19/22 12:55 potension Iodinated Contrast Media Allergy Unknown Verified 05/19/22 12:55 [facility] ED 2 [facility]: Medical History (Updated 09/29/24 @ 08:25 by Zuhair Eaton MD) Recurrent UTI HTN (hypertension) Breast cancer Thyroid disorder Chronic cystitis Surgical History Hx of bilateral mastectomy Hx of appendectomy Hx of thyroidectomy Hx of cholecystectomy Family History Mother , AT AGE 91 Diabetes Father , AT AGE 61 CAD (coronary artery disease) Other Cancer Social History Smoking and tobacco/nicotine status: never used tobacco/nicotine Alcohol intake: never Adopted: No Caregiver/support person: No Lives independently: No Household members: spouse Marital status: Current occupational status: retired Physical Exam 2 Narrative: EXAM NARRATIVE: Alert oriented no acute distress except mild anxiety. Pupils equal reactive. Neck is supple. Moist mucous membranes. Normal conjunctiva. Heart is regular rhythm and lung sounds are clear. Abdomen soft nontender no guarding or rebound. Tolerates deep palpation throughout the abdomen. No CVA tenderness. Moves her neck and back freely. Intact [id number]-xy-[id number]. Clear speech. No facial droop. No ataxia. No drift in her arms or legs. No calf tenderness or pitting edema. No rash in exposed areas. Shows ability to reason. Clear sensorium. Course 2 Vital Signs: Vital signs: Vital Signs Temperature 98.4 F 09/29/24 05:58 Pulse Rate 59 L 09/29/24 06:36 Respiratory Rate 17 09/29/24 06:36 Blood Pressure 146/67 09/29/24 06:36 Pulse Oximetry 98 09/29/24 06:36 Oxygen Delivery Me thod Room Air 09/29/24 06:36 MDM - Nausea/Vomiting/Diarrhea Medical Decision Making Patient presents complaining of nausea. She states she had a few days of burning and frequency of urination and some mild nausea with that but the nausea got worse since yesterday. She states it was worse before she started the antibiotic and cranberry pill. She denies headache or dizziness. She denies any chest pain or chest discomfort or shortness of breath. Denies any abdominal pain. Denies fever. Denies flank pain. Denies diarrhea or vomiting. Denies any new focal weakness numbness or tingling. Patient denies symptoms to suggest central cause. No findings on neurological exam. Denies any chest pain to suggest cardiac etiology and she denies history of heart disease. I will screen EKG and troponin with low pretest probability. She denies abdominal pain and has no abdominal tenderness to suggest acute cholecystitis or bowel obstruction or appendicitis or other intra-abdominal infection. CBC CMP ordered as well as a repeat urinalysis. Patient states she was diagnosed with UTI and started on antibiotics yesterday but states her symptoms preceded the antibiotics. I ordered Zofran 4 mg IV for her nausea and 500 cc normal saline bolus, and I ordered a lipase. Patient states she is feeling much much better. Patient urinalysis suggestive of significant UTI. Advised her to stop the nitrofurantoin and will place her on cefdinir instead. White count not elevated. Urinalysis consistent with infection. Troponin not elevated. Creatinine not elevated. Omnicef and Zofran prescribed. Patient currently asymptomatic requesting discharge. I advised signs symptoms of worsening watch and return for and limits of ED evaluation Lab Data 09/29/24 06:08 09/29/24 06:08 Laboratory Results WBC 4.75 10^3/uL (3.29-11.43) 09/29/24 06:08 RBC 4.32 10^6/uL (3.85-5.65) 09/29/24 06:08 Hgb 13.10 g/dL (11.27-16.99) 09/29/24 06:08 Hct 40.9 % (36-47) 09/29/24 06:08 MCV 94.7 fl (85-98) 09/29/24 06:08 MCH 30.3 pg (27-33) 09/29/24 06:08 MCHC 32.0 g/dL (30-55) 09/29/24 06:08 RDW 13.8 % (12.1-15.1) 09/29/24 06:08 Plt Count 182 10^3/cmm (157-399) 09/29/24 06:08 MPV 10.8 fL (7.4-10.4) H 09/29/24 06:08 Neut % (Auto) 52.5 % 09/29/24 06:08 Lymph % (Auto) 32.6 % 09/29/24 06:08 [place] % (Auto) 11.6 % 09/29/24 06:08 Eos % (Auto) 2.9 % 09/29/24 06:08 Baso % (Auto) 0.2 % 09/29/24 06:08 Neut # (Auto) 2.49 10^3/uL (1.8-7.7) 09/29/24 06:08 Lymph # (Auto) 1.6 10^3/uL (0.8-4.8) 09/29/24 06:08 [place] # (Auto) 0.6 10^3/uL (0.2-0.9) 09/29/24 06:08 Eos # (Auto) 0.1 10^3/uL (0.0-0.8) 09/29/24 06:08 Baso # (Auto) 0.0 10^3/uL (0.0-0.1) 09/29/24 06:08 Nucleated RBC % (auto) 0 % 09/29/24 06:08 Nucleated RBCs # 0.0 /100WBC 09/29/24 06:08 Sodium 141 mmol/L (136-145) 09/29/24 06:08 Potassium 3.7 mmol/L (3.5-5.1) 09/29/24 06:08 Chloride 105 mmol/L (98-107) 09/29/24 06:08 Carbon Dioxide 26 mmol/L (22-29) 09/29/24 06:08 Anion Gap 13.7 (5-19) 09/29/24 06:08 BUN 16 mg/dL (8-23) 09/29/24 06:08 Creatinine 0.8 mg/dL (0.5-0.9) 09/29/24 06:08 GFR Calculation Not Reportable 09/29/24 06:08 Glucose 101 mg/dL (65-115) 09/29/24 06:08 Calculated Osmolality 293 mOsm/kg (285-295) 09/29/24 06:08 Calcium 9.2 mg/dL (8.5-10.5) 09/29/24 06:08 Total Bilirubin 1.2 mg/dL (0.15-1.2) 09/29/24 06:08 AST 21 U/L (0-32) 09/29/24 06:08 ALT 13 U/L (0-33) 09/29/24 06:08 Alkaline Phosphatase 95 U/L (35-105) 09/29/24 06:08 Troponin T Baseline 10 ng/L (0-10) 09/29/24 06:08 Total Protein 6.7 g/dL (6.6-8.7) 09/29/24 06:08 Albumin 3.7 g/dL (3.5-5.2) 09/29/24 06:08 Globulin 3.0 g/dL (1.3-4.6) 09/29/24 06:08 Lipase 31 U/L (13-60) 09/29/24 06:08 Urine Color Yellow (Yellow) 09/29/24 07:01 Urine Appearance Turbid (CLEAR) A 09/29/24 07:01 Urine pH 6.0 (5-7) 09/29/24 07:01 Ur Specific [place] 1.008 (1.005-1.030) 09/29/24 07:01 Urine Protein Negative (Negative) 09/29/24 07:01 Urine Glucose (UA) Negative (Normal) 09/29/24 07:01 Urine Ketones Negative (Negative) 09/29/24 07:01 Urine Blood Trace (Negative) A 09/29/24 07:01 Urine Nitrate Negative (Negative) 09/29/24 07:01 Urine Bilirubin Negative (Negative) 09/29/24 07:01 Urine Urobilinogen 0.2 mg/dL (Negative) 09/29/24 07:01 Ur Leukocyte Esterase 3+ (Negative) A 09/29/24 07:01 Urine RBC None /hpf (0-2) 09/29/24 07:01 Urine WBC >100 /hpf (0-5) H 09/29/24 07:01 Ur Squamous Epith Cells 5-10 /hpf (0-5) H 09/29/24 07:01 Amorphous Sediment Not Reportable 09/29/24 07:01 Urine Bacteria 1+ /hpf (NONE) H 09/29/24 07:01 No radiology studies performed this visit Discharge Plan Discharge Patient Disposition: Home Clinical Impression: Acute lower UTI, Nausea Condition: Stable Prescriptions: New ondansetron 4 mg tablet,disintegrating 4 mg PO Q8H PRN (Reason: nausea and vomiting) 4 Days Qty: 10 0RF cefdinir 300 mg capsule 300 mg PO BID 7 Days Qty: 14 0RF No Action cholecalciferol (vitamin D3) 50 mcg (2,000 unit) capsule 50 mcg PO DAILY hydrochlorothiazide 12.5 mg tablet 12.5 mg PO DAILY levothyroxine 112 mcg capsule 112 mcg PO .TAKES ON MONDAY losartan 100 mg tablet Synthroid 100 mcg tablet hydroxyzine HCl 25 mg tablet 25 mg PO QID PRN (Reason: prn anxiety) Qty: 20 0RF ondansetron 4 mg tablet,disintegrating 4 mg PO Q6H PRN (Reason: nausea and vomiting) Qty: 14 0RF ondansetron 4 mg tablet,disintegrating 4 mg PO Q8H PRN (Reason: nausea and vomiting) Qty: 15 0RF Discharge Orders: Discharge ED (Routine); Ordered 09/29/24 Ordered By: Zuhair Eaton Referrals: David Resendiz MD [Primary Care Provider, Family Practice] Patient Instructions: Opioid Safety, Pain Management, Patient Portal & Anatoliy Instructions Activity Restrictions/Additional Instructions: Stop the nitrofurantoin that you are currently on and take the cefdinir instead. Come back if vomiting, fever, abdominal pain, flank pain, getting worse instead of better, any concerns. Make sure to drink plenty of fluid. Follow-up on your test results with your doctor. Print Language: Ukrainian Coding Level of Care Code ED Informatica Mdm Architect for Renata Braga
--- NOTE | 2024-09-29 06:21 | ECG_ITS ---
[facility] Test Date: 2024-09-29 Pat Name: Anish Dockery Department: Room: Gender: Female Renderer: GAEL: 1945 Requested By: Zuhair Eaton Order Number: [id number] Charles MD: Masood Michael M.D. Measurements Intervals [place] Rate: 59 P: 80 MI: 176 QRS: -1 QRSD: 105 T: 66 QT: 420 QTc: 419 Interpretive Statements SINUS BRADYCARDIA INCOMPLETE RIGHT BUNDLE BRANCH BLOCK [90+ ms QRS DURATION, TERMINAL R IN V1/V2, 40+ ms S IN I/aVL/V4/V5/V6] Compared to ECG 08/16/2022 02:56:42 no significant change Electronically Signed On 09-29-2024 17:03:09 CDT by Masood Michael M.D. [email or web address]
[2024-09-29 06:23] LABS: Hematocrit 40.9 % (36-47); Hemoglobin 13.10 g/dL (11.27-16.99); Mean Corpuscular HGB Conc 32.0 g/dL (30-55); Mean Corpuscular Hemoglobin 30.3 pg (27-33); Mean Corpuscular Volume 94.7 fl (85-98); Nucleated Red Blood Cells % 0 %; Platelet Count 182 10^3/cmm (157-399); Red Blood Count 4.32 10^6/uL (3.85-5.65); White Blood Count 4.75 10^3/uL (3.29-11.43)
[2024-09-29 06:27] VITALS: BP 101/86; PULSE 58; RESP 17; O2SAT 99
[2024-09-29] MEDS: ondansetron 2 mg/ML SDV 2 mL 4 MG IVP (06:34)
[2024-09-29 06:36] VITALS: BP 146/67; PULSE 59; RESP 17; O2SAT 98
[2024-09-29 06:49] LABS: Troponin(5th) Baseline 10 ng/L (0-10)
[2024-09-29 06:50] LABS: Alanine Aminotransferase 13 U/L (0-33); Albumin Level 3.7 g/dL (3.5-5.2); Alkaline Phosphatase 95 U/L (35-105); Aspartate Amino Transferase 21 U/L (0-32); Blood Urea Nitrogen 16 mg/dL (8-23); Calcium 9.2 mg/dL (8.5-10.5); Carbon Dioxide 26 mmol/L (22-29); Chloride 105 mmol/L (98-107); Creatinine Clr Calc Pharmacy 47.8138; Globulin 3.0 g/dL (1.3-4.6); Glucose 101 mg/dL (65-115); Lipase 31 U/L (13-60); Osmolality Calculated 293 mOsm/kg (285-295); Sodium 141 mmol/L (136-145); Total Protein 6.7 g/dL (6.6-8.7)
[2024-09-29 07:29] LABS: Glucose Urine UA Negative (Normal); Nitrate Urine Negative (Negative); Specific Gravity, Urine 1.008 (1.005-1.030)
[2024-09-29 07:32] LABS: Anion Gap 13.7 (5-19); Potassium 3.7 mmol/L (3.5-5.1)
[2024-09-29] MEDS: cefTRIAXone 1,000 mg SDV 1000 MG IVP (08:34)
[2024-09-29 08:47] VITALS: BP 148/66; PULSE 53; O2SAT 98
== END 2024-09-29 08:48 | disposition home or self-care (01) ==
PROVIDERS: Emergency Provider Emergency Medicine; PCP Family Medicine
DX: N39.0 Urinary tract infection, site not specified (principal); R11.0 Nausea; I10 Essential (primary) hypertension; Z85.3 Personal history of malignant neoplasm of breast
CPT/HCPCS: 36415; 80053; 81001; 83690; 84484; 85025; 87086; 93005; 96361; 96374; 96375; 99284; J0696; J2405; J7040

== ENCOUNTER 2025-02-04 04:45 | Emergency (ER) | payer MEDICARE, OTHER, SELFPAY ==
--- OUTSIDE RECORDS SUMMARY | 2024-11-12 11:00 | XMS_ITS ---
Author Organization [facility] Address [address] [place] [address] Care Team Providers Care Money Position Officer Name Role Phone David Resendiz MD Primary Care Provider ESTEPHANIA Alejandro Unavailable [phone] HANK ROJAS Unavailable [phone] REASON FOR VISIT 1 yr w/ ua/pvr Encounters Encounter Location Date Provider Diagnosis [facility] [address] [place] [address] 11/12/2024 HANK ROJAS Plan Of Treatment No Information Progress Notes * Anish DOCKERY ODOB: [birth year] (79 yo F)Acc No.[id number]:11/12/2024 Progress Notes Patient: Anish DANIEL Glenys Provider: Eden Rojas APRN :1945 A ge:79 Y S ex:Female Date:11/12/2024 Address:[address] [place], [place] [address] Pcp:David Resendiz MD Subjective: * Chief Complaints: * 1 . 1 yr w/ ua/pvr. * Medical History: Objective: * Vitals: Assessment: Plan: * Treatment: * Billing Information: * Visit Code: * Procedure Codes: * Electronic signature of KIERSTEN ROJAS APRN on 02/04/2025 at 05:02 AM INSPECTOR AND SORTER Sign off status: Pending * Provider: Eden Rojas APRN Date: 0 11/12/2024 Generated for Kirsten amezcua/Naya/Sheilaitting on: 1 04/07/2024 05:02 AM INSPECTOR AND SORTER
[2025-02-04 04:47] VITALS: BP 139/60; PULSE 77; RESP 18; TEMP 36.4; O2SAT 99; BMI 24.7
[2025-02-04 04:53] VITALS: BP 139/60; PULSE 77; RESP 18; TEMP 36.4; O2SAT 99
--- NOTE | 2025-02-04 04:53 | ECG_ITS ---
[facility] Test Date: 2025-02-04 Pat Name: Anish Dockery Department: Room: Gender: Female Senior Health Consultant: : 1945 Requested By: Jared Ibarra Order Number: [id number] Araceli MD: MARCO A OGDEN Measurements Intervals [place] Rate: 68 P: 94 NM: 169 QRS: -20 QRSD: 122 T: 53 QT: 389 QTc: 414 Interpretive Statements SINUS RHYTHM LEFT VENTRICULAR HYPERTROPHY AND ST-T CHANGE [VOLTAGE CRITERIA PLUS ST/T ABNORMALITY] Compared to ECG 09/29/2024 06:21:19 Left ventricular hypertrophy now present ST (T wave) deviation now present Sinus bradycardia no longer present Incomplete right bundle-branch block no longer present Electronically Signed On 02-04-2025 11:53:58 CONSTRUCTION PLANT OPERATOR by MARCO A OGDEN [email or web address]
--- NOTE | 2025-02-04 04:59 | CTR_ITS ---
PROCEDURE INFORMATION: Exam: CT Head Without Contrast Exam date and time: 02/04/2025 5:46 AM Age: 79 years old Clinical indication: Dizziness; Additional info: Dizzy TECHNIQUE: Imaging protocol: Computed tomography of the head without contrast. Radiation optimization: All CT scans at this facility use at least one of these dose optimization techniques: automated exposure control; mA and/or kV adjustment per patient size (includes targeted exams where dose is matched to clinical indication); or iterative reconstruction. COMPARISON: CT head wo con* [id number] 03/11/2021 12:40 PM RADIATION DOSE METRICS: Total DLP (mGy-cm): 1045.24 FINDINGS: Brain: Normal. No hemorrhage. Unremarkable white matter. No mass effect. Cerebral ventricles: No ventriculomegaly. Paranasal sinuses: Visualized sinuses are unremarkable. No fluid levels. Mastoid air cells: Visualized mastoid air cells are well aerated. Bones: Unremarkable. No acute fracture. Soft tissues: Unremarkable. CT/CT head wo con* [id number] IMPRESSION: No acute intracranial abnormality.
--- OUTSIDE RECORDS SUMMARY | 2025-02-04 05:01 | XMS_ITS | Encounter Summary ---
Author Organization [facility] Address [address] [place] [address] Care Team Providers Care Assignment Manager Name Role Phone David Resendiz MD Primary Care Provider [phone] Encounter Details Date Type Department Care Team (Latest Contact Info) Description 04/18/2005 Outpatient [facility] Breast Center [facility] [address] [place] [address] Sanya Coyle MD NO ADDRESS ON FILE Other Screening Mammogram (Primary Dx) Social History Tobacco Use Types Packs/Day Years Used Date Smoking Tobacco: Never Assessed Comments Unknown Sex and Gender Information Value Date Recorded Sex Assigned at Not on file Legal Sex Female 4:15 AM DIETITIAN TEACHING Gender Identity Not on file Sexual Orientation Not on file documented as of this encounter Plan of Treatment Not on file documented as of this encounter Visit Diagnoses Diagnosis Other screening mammogram- Primary documented in this encounter Care Teams Assignment Manager Relationship Specialty Start Date End Date David Resendiz MD [address] [facility] 1 [place] [id number] PCP - General 01/05/09 documented as of this encounter
--- OUTSIDE RECORDS SUMMARY | 2025-02-04 05:01 | XMS_ITS | Clinical Summary ---
Author Organization [facility] Address [address] [facility] Attn: Epic Prelude ADT [place] [address] Care Team Providers Care Criminal Research Specialist Name Role Phone David Resendiz MD Primary Care Provider [phone] Allergies No known active allergies Medications losartan-hydroCH [...] on file Legal Sex Female 4:02 PM WHEEL BLOCKER Gender Identity Not on file Sexual Orientation [...] INFLUENZA VACCINE (#1) 2024 11/16/2006 Care Teams Criminal Research Specialist Relationship Specialty Start Date End Date David Resendiz MD [address] [id number] PCP - General 01/05/09
--- OUTSIDE RECORDS SUMMARY | 2025-02-04 05:01 | XMS_ITS | Encounter Summary ---
Author Organization [facility] Address [address] [place] [address] Care Team Providers Care Restaurant Crew Member Name Role Phone David Resendiz MD Primary Care Provider [phone] Encounter Details Date Type Department Care Team (Late st Contact Info) Description 05/19/2005 Outpatient Historical [facility] [address] [facility] [address] [place] [address] Nick Hnady MD [address] [place] [address] Social History Tobacco Use Types Packs/Day Years Used Date Smoking Tobacco: Never Assessed Comments Unknown Sex and Gender Information Value Date Recorded Sex Assigned at Not on file Legal Sex Female 4: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
--- OUTSIDE RECORDS SUMMARY | 2025-02-04 05:01 | XMS_ITS | Encounter Summary ---
Author Organization [facility] Address [address] [place] [address] Care Team Providers Care Marketing Financial Analyst Name Role Phone David Resendiz MD Primary Care Provider [phone] Encounter Details Date Type Department Care Team (Late st Contact Info) Description 10/27/2005 Outpatient Historical [facility] [address] [place] [address] Social History Tobacco Use Types Packs/Day Years Used Date Smoking Tobacco: Never Assessed Comments Unknown Sex and Gender Information Value Date Recorded Sex Assigned at Not on file Legal Sex Female 4:15 AM [employer] [facility] TECH Gender Identity Not on file Sexual Orientation Not on file documented as of this encounter Plan of Treatment Not on file documented as of this encounter Visit Diagnoses Not on filedocumented in this encounter Care Teams Marketing Financial Analyst Relationship Specialty Start Date End Date David Resendiz MD [address] [facility] 1 [place] [address] PCP - General 01/05/09 documented as of this encounter
--- OUTSIDE RECORDS SUMMARY | 2025-02-04 05:01 | XMS_ITS | Encounter Summary ---
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) Social History Tobacco Use Types Packs/Day Years Used Date Smoking Tobacco: Never Assessed Comments Unknown Sex and Gender Information Value Date Recorded Sex Assigned at Not on file Legal Sex Female 4:15 AM OR RN Gender Identity Not on file Sexual Orientation Not on file documented as of this encounter Plan of Treatment Not on file documented as of this encounter Visit Diagnoses Diagnosis Malignant neoplasm of 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
--- OUTSIDE RECORDS SUMMARY | 2025-02-04 05:01 | XMS_ITS | Encounter Summary ---
Author Organization [facility] Address [address] [place] [address] Care Team Providers Care Terminal Worker Name Role Phone David Resendiz MD Primary Care Provider [phone] Encounter Details Date Type Department Care Team (Late st Contact Info) Description 11/07/2006 Outpatient Historical [facility] [address] [place] [address] Social History Tobacco Use Types Packs/Day Years Used Date Smoking Tobacco: Never Assessed Comments Unknown Sex and Gender Information Value Date Recorded Sex Assigned at Not on file Legal Sex Female 4:15 AM CAMPUS RECEPTIONIST Gender Identity Not on file Sexual Orientation Not on file documented as of this encounter Plan of Treatment Not on file documented as of this encounter Visit Diagnoses Not on filedocumented in this encounter Care Teams Terminal Worker Relationship Specialty Start Date End Date David Resendiz MD 8[address] [facility] 1 [place] [address] PCP - General 01/05/09 documented as of this encounter
--- OUTSIDE RECORDS SUMMARY | 2025-02-04 05:01 | XMS_ITS | Clinical Summary ---
Author Organization [facility] Address [address] [place] [address] Care Team Providers Care Engraver Ornamental Design Name Role Phone David Resendiz MD Primary Care Provider [phone] Allergies No known active allergies Medications SYNTHROID [...] on file Legal Sex Female 4:15 AM HEALTH CARE AIDE Gender Identity Not on file Sexual Orientation [...] 11/16/2006 Insurance MEDICARE PART A AND B [facility] Care Teams Engraver Ornamental Design Relationship Specialty Start Date End Date David Resendiz MD [address] [address] PCP - General 01/05/09
--- OUTSIDE RECORDS SUMMARY | 2025-02-04 05:01 | XMS_ITS | Encounter Summary ---
Author Organization [facility] Address [address] [place] [address] Care Team Providers Care Healthcare Recruiter Name Role Phone David Resendiz MD Primary Care Provider [phone] Encounter Details Date Type Department Care Team (Late st Contact Info) Description 06/16/2006 Outpatient Historical [facility] Gen Spec Surg [place] [address] [facility] [address] [place] [address] Jose Ramirez MD NO ADDRESS ON FILE Malignant Neoplasm of Breast (Female), Unspecified Site (CMS/HCC) (Primary Dx); Follow-Up Examination, Following Unspecified Surgery Social History Tobacco Use Types Packs/Day Years Used Date Smoking Tobacco: Never Assessed Comments Unknown Sex and Gender Information Value Date Recorded Sex Assigned at Not on file Legal Sex Female 4:15 AM LIEUTENANT COLONEL Gender Identity Not on file Sexual Orientation Not on file documented as of this encounter Plan of Treatment Not on file documented as of this encounter Visit Diagnoses Diagnosis Malignant neoplasm of breast (female), unspecified site- Primary Follow-up examination, following unspecified surgery documented in this encounter Care Teams Healthcare Recruiter Relationship Specialty Start Date End Date David Resendiz MD [address] [facility] 1 [place] [address] PCP - General 01/05/09 documented as of this encounter
--- OUTSIDE RECORDS SUMMARY | 2025-02-04 05:01 | XMS_ITS | Encounter Summary ---
Author Organization [facility] Address [address] [place] [address] Care Team Providers Care Slab Miller Operator Name Role Phone David Resendiz MD Primary Care Provider [phone] Encounter Details Date Type Department Care Team (Late st Contact Info) Description 06/09/2006 Outpatient Historical [facility] Gen Spec Surg [place] [address] [facility] [address] [place] [address] Jose Ramirez MD NO ADDRESS ON FILE Malignant Neoplasm of Breast (Female), Unspecified Site (CMS/HCC) (Primary Dx); Follow-Up Examination, Following Unspecified Surgery Social History Tobacco Use Types Packs/Day Years Used Date Smoking Tobacco: Never Assessed Comments Unknown Sex and Gender Information Value Date Recorded Sex Assigned at Not on file Legal Sex Female 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
--- OUTSIDE RECORDS SUMMARY | 2025-02-04 05:01 | XMS_ITS | Patient Health Record ---
Author Organization [facility] Address [address] [facility] [place] [address] Care Team Providers Care Php Web Developer Name Role Phone David Resendiz MD Primary Care Provider ESTEPHANIA Alejandro Unavailable [phone] CRYSTALHANK Unavailable [phone] Allergies Allergen (clinical drug ingredient) Drug/Non Drug [...] Sodium 0.1 MG Oral Tablet *Reorder from [facility] for eRx and Interaction Alerts* 7 Active Hydrochlorothiazide 12.5 MG / Losartan Potassium 100 MG Oral Tablet Hydrochlorothiazide 12.5 MG / Losartan Potassium 100 MG Oral Tablet *Reorder from [facility] for eRx and Interaction Alerts* 5 Active Levothyroxine Sodium 0.112 MG Oral Tablet Levothyroxine Sodium 0.112 MG Oral Tablet *Reorder from [facility] for eRx and Interaction Alerts* 2 Not-Og g Pravastatin Sodium 20 MG Oral Tablet Pravastatin Sodium 20 MG Oral Tablet *Reorder from [facility] for eRx and Interaction Alerts* 2 Active Vitamin D3 Active Problems Problem Type SNOMED Code ICD Code Onset Dates Problem Status W/U Status Risk Notes Problem Personal history of primary malignant neoplasm of breast (291195584) History of breast cancer (Z85.3) Active confirmed Problem History of gastrointestinal disease (978153773) History of constipation (Z87.19) Active confirmed Problem Chronic cystitis (84109976) Chronic cystitis (N30.20) Active confirmed Problem Recurrent urinary tract infection (742280897) Recurrent UTI (N39.0) Active confirmed Plan Of Treatment Pending Test Test Name Order Date Bladder Scan 03/01/2023 Insurance Providers Payer Name Payer Address Payer Phone Subscriber Number Group Number Insured Name Patient Relationship to Insured Coverage Start Date Coverage End Date [place] [address] [address] [place], [place] [id number] Anish Dockery Self - patient is the insured [employer] [address] [address] [place], [place] [id number] Anish Dockery Self - patient is the insured Medical [...]
--- OUTSIDE RECORDS SUMMARY | 2025-02-04 05:01 | XMS_ITS | Encounter Summary ---
Author Organization [facility] Address [address] [place] [address] Care Team Providers Care Customs Inspector Name Role Phone David Resendiz MD Primary Care Provider [phone] Encounter Details Date Type Department Care Team (Latest Contact Info) Description 11/07/2005 Outpatient Historical [facility] Jay Heller MD NO ADDRESS ON FILE Other Follow-Up Examination (Primary Dx) Social History Tobacco Use Types Packs/Day Years Used Date Smoking Tobacco: Never Assessed Comments Unknown Sex and Gender Information Value Date Recorded Sex Assigned at Not on file Legal Sex Female 4:15 AM WRONG ADDRESS CLERK Gender Identity Not on file Sexual Orientation Not on file documented as of this encounter Plan of Treatment Not on file documented as of this encounter Visit Diagnoses Diagnosis Other follow-up examination(V67.59)- Primary Other follow-up examination documented in this encounter Care Teams Customs Inspector Relationship Specialty Start Date End Date David Resendiz MD 805 [facility] 1 [place] [address] PCP - General 01/05/09 documented as of this encounter
--- OUTSIDE RECORDS SUMMARY | 2025-02-04 05:01 | XMS_ITS | Encounter Summary ---
Author Organization [facility] Address [address] [place] [address] Care Team Providers Care Consumer Insights Intern Name Role Phone David Resendiz MD Primary Care Provider [phone] Encounter Details Date Type Department Care Team (Latest Contact Info) Description 05/17/2007 Outpatient Historical [facility] [address] [facility] [address] [place] [address] Rojelio Latif MD NO ADDRESS ON FILE Malignant Neoplasm of Breast (Female), Unspecified Site (CMS/HCC) Social History Tobacco Use Types Packs/Day Years Used Date Smoking Tobacco: Never Assessed Comments Unknown Sex and Gender Information Value Date Recorded Sex Assigned at Not on file Legal Sex Female 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
--- OUTSIDE RECORDS SUMMARY | 2025-02-04 05:01 | XMS_ITS | Encounter Summary ---
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 Breast (CMS/HCC) (Primary Dx) Social History Tobacco Use Types Packs/Day Years Used Date Smoking Tobacco: Never Assessed Comments Unknown Sex and Gender Information Value Date Recorded Sex Assigned at Not on file Legal Sex Female 4:15 AM INSURANCE BUSINESS ANALYST Gender Identity Not on file Sexual Orientation Not on file documented as of this encounter Plan of Treatment Not on file documented as of this encounter Visit Diagnoses Diagnosis Malignant neoplasm of upper-outer quadrant of female breast (CMS/HCC)- Primary Malignant neoplasm of upper-outer quadrant of female breast documented in this encounter Care Teams Cognos Administrator Relationship Specialty Start Date End Date David Resendiz MD 805 [facility] 1 [place] [address] PCP - General 01/05/09 documented as of this encounter
--- OUTSIDE RECORDS SUMMARY | 2025-02-04 05:01 | XMS_ITS | Encounter Summary ---
Author Organization [facility] Address [address] [place] [address] Care Team Providers Care Circus Supervisor Name Role Phone David Resendiz MD Primary Care Provider [phone] Encounter Details Date Type Department Care Team (Latest Contact Info) Description 05/16/2006 Outpatient Historical [facility] [address] [facility] [address] [place] [address] Blayne Pena MD NO ADDRESS ON FILE CA in Situ Breast (Primary Dx); Fat Necrosis of Breast Social History Tobacco Use Types Packs/Day Years Used Date Smoking Tobacco: Never Assessed Comments Unknown Sex and Gender Information Value Date Recorded Sex Assigned at Not on file Legal Sex Female 4:15 AM MECHANICAL MAINTENANCE SUPERVISOR Gender Identity Not on file Sexual Orientation Not on file documented as of this encounter Plan of Treatment Not on file documented as of this encounter Visit Diagnoses Diagnosis 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
--- OUTSIDE RECORDS SUMMARY | 2025-02-04 05:01 | XMS_ITS | Encounter Summary ---
Author Organization [facility] Address [address] [place] [address] Care Team Providers Care Picture Hanger Name Role Phone David Resendiz MD Primary Care Provider [phone] Encounter Details Date Type Department Care Team (Late st Contact Info) Description 05/08/2006 Outpatient Historical [facility] [address] [facility] [address] [place] [address] Bryanna Diaz MD NO ADDRESS ON FILE Other Sign and Symptom in Breast (Primary Dx) Social History Tobacco Use Types Packs/Day Years Used Date Smoking Tobacco: Never Assessed Comments Unknown Sex and Gender Information Value Date Recorded Sex Assigned at Not on file Legal Sex Female 4:15 AM HORSE RACER Gender Identity Not on file Sexual Orientation Not on file documented as of this encounter Plan of Treatment Not on file documented as of this encounter Visit Diagnoses Diagnosis Other sign and symptom in breast- Primary documented in this encounter Care Teams Picture Hanger Relationship Specialty Start Date End Date David Resendiz MD 805 [facility] 1 [place] [address] PCP - General 01/05/09 documented as of this encounter
--- OUTSIDE RECORDS SUMMARY | 2025-02-04 05:01 | XMS_ITS | Encounter Summary ---
Author Organization [facility] Address [address] [place] [address] Care Team Providers Care Rail Car Painter/Sandblaster Name Role Phone David Resendiz MD Primary Care Provider [phone] Encounter Details Date Type Department Care Team (Latest Contact Info) Description 11/07/2005 Outpatient Historical [facility] [address] [facility] 120 [place] [address] Garima Prakash MD NO ADDRESS ON FILE Other Sign and Symptom in Breast (Primary Dx) Social History Tobacco Use Types Packs/Day Years Used Date Smoking Tobacco: Never Assessed Comments Unknown Sex and Gender Information Value Date Recorded Sex Assigned at Not on file Legal Sex Female 4:15 AM ALLIANCE DIRECTOR Gender Identity Not on file Sexual Orientation Not on file documented as of this encounter Plan of Treatment Not on file documented as of this encounter Visit Diagnoses Diagnosis Other sign and symptom in breast- Primary documented in this encounter Care Teams Rail Car Painter/Sandblaster Relationship Specialty Start Date End Date David Resendiz MD 805 [facility] 1 [place] [address] PCP - General 01/05/09 documented as of this encounter
--- OUTSIDE RECORDS SUMMARY | 2025-02-04 05:01 | XMS_ITS | Encounter Summary ---
Author Organization [facility] Address [address] [place] [address] Care Team Providers Care Oil Filters Inspector Name Role Phone David Resendiz MD Primary Care Provider [phone] Encounter Details Date Type Department Care Team (Latest Contact Info) Description 05/16/2006 Outpatient [facility] [address] [place] [address] Blayne Pena MD NO ADDRESS ON FILE Jay Heller MD NO ADDRESS ON FILE Malignant Neoplasm of Breast (Female), Unspecified Site (CMS/HCC) (Primary Dx) Social History Tobacco Use Types Packs/Day Years Used Date Smoking Tobacco: Never Assessed Comments Unknown Sex and Gender Information Value Date Recorded Sex Assigned at Not on file Legal Sex Female 4:15 AM INPATIENT NURSING AIDE Gender Identity Not on file Sexual Orientation Not on file documented as of this encounter Plan of Treatment Not on file documented as of this encounter Visit Diagnoses Diagnosis Malignant neoplasm of breast (female), unspecified site- Primary documented in this encounter Care Teams Oil Filters Inspector Relationship Specialty Start Date End Date David Resendiz MD 805 [facility] 1 [place] [address] PCP - General 01/05/09 documented as of this encounter
--- OUTSIDE RECORDS SUMMARY | 2025-02-04 05:01 | XMS_ITS | Encounter Summary ---
Author Organization [facility] Address [address] [place] [address] Care Team Providers Care Video Games Mechanic Name Role Phone David Resendiz MD Primary Care Provider [phone] Encounter Details Date Type Department Care Team (Latest Contact Info) Description 10/24/2005 Outpatient Historical [facility] [address] [place] [address] Rojelio Latif MD NO ADDRESS ON FILE Carcinoma in Situ of Breast (Primary Dx) Social History Tobacco Use Types Packs/Day Years Used Date Smoking Tobacco: Never Assessed Comments Unknown Sex and Gender Information Value Date Recorded Sex Assigned at Not on file Legal Sex Female 4:15 AM ACCOUNT SERVICES REPRESENTATIVE Gender Identity Not on file Sexual Orientation Not on file documented as of this encounter Plan of Treatment Not on file documented as of this encounter Visit Diagnoses Diagnosis Carcinoma in situ of breast- Primary documented in this encounter Care Teams Video Games Mechanic Relationship Specialty Start Date End Date David Resendiz MD [address] [place] [address] 1 [place] [address] PCP - General 01/05/09 documented as of this encounter
--- OUTSIDE RECORDS SUMMARY | 2025-02-04 05:01 | XMS_ITS | Encounter Summary ---
Author Organization [facility] Address [address] [place] [address] Care Team Providers Care Screen Writer Name Role Phone David Resendiz MD Primary Care Provider [phone] Encounter Details Date Type Department Care Team (Late st Contact Info) Description 05/26/[address] [facility] Gen Spec Surg [place] [address] [facility] [address] [place] [address] Jose Ramirez MD NO ADDRESS ON FILE CA in Situ Breast (Primary Dx) Social History Tobacco Use Types Packs/Day Years Used Date Smoking Tobacco: Never Assessed Comments Unknown Sex and Gender Information Value Date Recorded Sex Assigned at Not on file Legal Sex Female 4:15 AM MANAGER FIXED INCOME Gender Identity Not on file Sexual Orientation Not on file documented as of this encounter Plan of Treatment Not on file documented as of this encounter Visit Diagnoses Diagnosis 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
--- OUTSIDE RECORDS SUMMARY | 2025-02-04 05:01 | XMS_ITS | Encounter Summary ---
Author Organization [facility] Address [address] [place] [address] Care Team Providers Care Overhead Door Technician Name Role Phone David Resendiz MD Primary Care Provider [phone] Encounter Details Date Type Department Care Team (Latest Contact Info) Description 05/08/2006 Outpatient Historical [facility] Cancer and Hematology [address] [place] [address] [address] [place] [address] Bindu Gibson FNP NO ADDRESS ON FILE Malignant Neoplasm of Upper-Outer Quadrant of Female Breast (CMS/HCC) (Primary Dx) Social History Tobacco Use Types Packs/Day Years Used Date Smoking Tobacco: Never Assessed Comments Unknown Sex and Gender Information Value Date Recorded Sex Assigned at Not on file Legal Sex Female 4:15 AM VP SCIENTIFIC AFFAIRS Gender Identity Not on file Sexual Orientation Not on file documented as of this encounter Plan of Treatment Not on file documented as of this encounter Visit Diagnoses Diagnosis Malignant neoplasm of upper-outer quadrant of female breast (CMS/HCC)- Primary Malignant neoplasm of upper-outer quadrant of female breast documented in this encounter Care Teams Overhead Door Technician Relationship Specialty Start Date End Date David Resendiz MD 805 [facility] 1 [place] [address] PCP - General 01/05/09 documented as of this encounter
--- OUTSIDE RECORDS SUMMARY | 2025-02-04 05:01 | XMS_ITS | Encounter Summary ---
Author Organization [facility] Address [address] [place] [address] Care Team Providers Care Residential Collections Name Role Phone David Resendiz MD Primary Care Provider [phone] Encounter Details Date Type Department Care Team (Latest Contact Info) Description 05/08/2006 Outpatient [facility] [address] [place] [address] Jay Heller MD NO ADDRESS ON FILE Other Abnormal Findings on Radiological Examination of Breast (Primary Dx) Social History Tobacco Use Types Packs/Day Years Used Date Smoking Tobacco: Never Assessed Comments Unknown Sex and Gender Information Value Date Recorded Sex Assigned at Not on file Legal Sex Female 4:15 AM EDUCATIONAL TECHNOLOGY COORDINATOR Gender Identity Not on file Sexual Orientation Not on file documented as of this encounter Plan of Treatment Not on file documented as of this encounter Visit Diagnoses Diagnosis Other (abnormal) findings on radiological examination of breast- Primary documented in this encounter Care Teams Residential Collections Relationship Specialty Start Date End Date David Resendiz MD [address] [phone] PCP - General 01/05/09 documented as of this encounter
--- OUTSIDE RECORDS SUMMARY | 2025-02-04 05:01 | XMS_ITS | Encounter Summary ---
Author Organization [facility] Address [address] [place] [address] Care Team Providers Care Hand Straightener Name Role Phone David Resendiz MD Primary Care Provider [phone] Encounter Details Date Type Department Care Team (Late st Contact Info) Description 03/05/2007 Outpatient Historical [facility] [address] [facility] [address] [place] [address] Jay Heller MD NO ADDRESS ON FILE Social History Tobacco Use Types Packs/Day Years Used Date Smoking Tobacco: Never Assessed Comments Unknown Sex and Gender Information Value Date Recorded Sex Assigned at Not on file Legal Sex Female 4:15 AM FINISHED GOODS PLANNER Gender Identity Not on file Sexual Orientation [...] being followed on a regular basis. Her lastvisit with Dr. Heller was in 10/20. She states that she has not had any new problems since that time. She has had a flair of her psoriasis. She is followed by a community product specialist who comes up out of [place] to a clinic in [place]. ALLERGIES: Barbital, Paxil, and clindamycin. PRESENT MEDICATIONS: She is on Benicar, Synthroid. SOCIAL HISTORY: She is and lives in [place]. She is accompanied by her . She hasowned a RV ID. REVIEW OF SYSTEMS: She states she has [...] of recurrence. 2. Psoriasis being managed by community product specialist with flair of her symptoms this winter. [...] take this to her family doctor in [place]. I encouraged her to be sure and keep her appointment with the community product specialist for evaluation of her psoriasis since it is more severe. She is in agreement with this plan. Time spent 25 minutes with over 50% of time spent in counseling. Complexity is high. [facility] Electronically Signed by KATHRINE Murphy 03/12/2007 17:59 , 2:24 P A, 425 Document #: [id number] cc: Alden Cullen M.D. SHED GOODS PLANNER documented in this encounter Plan of Treatment Not on file documented as of this encounter Visit Diagnoses Not on filedocumented in this encounter Care Teams Hand Straightener Relationship Specialty Start Date End Date David Resendiz MD [address] [phone] PCP - General 01/05/09 documented as of this encounter
--- OUTSIDE RECORDS SUMMARY | 2025-02-04 05:01 | XMS_ITS | Encounter Summary ---
Author Organization [facility] Address [address] [place] [address] Care Team Providers Care Project Planner Name Role Phone David Resendiz MD Primary Care Provider [phone] Encounter Details Date Type Department Care Team [...] on file Legal Sex Female 4:15 AM WEAPONS SYSTEM INSTRUMENT MECHANIC Gender Identity Not on file Sexual Orientation Not on file documented as of this encounter Plan of Treatment Not on file documented as of this encounter Visit Diagnoses Diagnosis Carcinoma in situ of breast- Primary documented in this encounter Care Teams Project Planner Relationship Specialty Start Date End Date David Resendiz MD [address] [facility] 1 [place] [phone] PCP - General 01/05/09 documented as of this encounter
--- OUTSIDE RECORDS SUMMARY | 2025-02-04 05:01 | XMS_ITS | Encounter Summary ---
Author Organization [facility] Address [address] [place] [address] Care Team Providers Care Sulfonation Equipment Operator Name Role Phone David Resendiz MD Primary Care Provider [phone] Encounter Details Date Type Department Care Team (Latest Contact Info) Description 04/24/2006 Outpatient Historical [facility] [address] [facility] [address] [place] [address] Rojelio Latif MD NO ADDRESS ON FILE Malignant Neoplasm of Breast (Female), Unspecified Site (CMS/HCC) (Primary Dx) Social History Tobacco Use Types Packs/Day Years Used Date Smoking Tobacco: Never Assessed Comments Unknown Sex and Gender Information Value Date Recorded Sex Assigned at Not on file Legal Sex Female 4:15 AM TOY ELECTRIC TRAIN REPAIRER Gender Identity Not on file Sexual Orientation Not on file documented as of this encounter Plan of Treatment Not on file documented as of this encounter Visit Diagnoses Diagnosis Malignant neoplasm of breast (female), unspecified site- Primary documented in this encounter Care Teams Sulfonation Equipment Operator Relationship Specialty Start Date End Date David Resendiz MD [address] [facility] 1 [place] [phone] PCP - General 01/05/09 documented as of this encounter
--- OUTSIDE RECORDS SUMMARY | 2025-02-04 05:01 | XMS_ITS | Encounter Summary ---
Author Organization [facility] Address [address] [place] [address] Care Team Providers Care Repairer Wood Furniture Name Role Phone David Resendiz MD Primary Care Provider [phone] Encounter Details Date Type Department Care Team (Late st Contact Info) Description 11/24/2005 Outpatient Historical [facility] [address] [facility] [address] [place] [address] Rojelio Latif MD NO ADDRESS ON FILE Social History Tobacco Use Types Packs/Day Years Used Date Smoking Tobacco: Never Assessed Comments Unknown Sex and Gender Information Value Date Recorded Sex Assigned at Not on file Legal Sex Female 4:15 AM WET CHAR CONVEYOR TENDER Gender Identity Not on file Sexual Orientation Not on file documented as of this encounter Plan of Treatment Not on file documented as of this encounter Visit Diagnoses Not on filedocumented in this encounter Care Teams Repairer Wood Furniture Relationship Specialty Start Date End Date David Resendiz MD [address] [facility] 1 [place] [address] PCP - General 01/05/09 documented as of this encounter
--- OUTSIDE RECORDS SUMMARY | 2025-02-04 05:01 | XMS_ITS | Encounter Summary ---
Author Organization [facility] Address [address] [place] [address] Care Team Providers Care Licensed Sales Assistant Name Role Phone David Resendiz MD Primary Care Provider [phone] Encounter Details Date Type Department Care Team (Latest Contact Info) Description 11/06/2006 Outpatient Historical [facility] [address] [place] [address] [address] [place] [address] Jay Heller MD NO ADDRESS ON FILE Malignant Neoplasm of Upper-Outer Quadrant of Female Breast (CMS/HCC) (Primary Dx) Social History Tobacco Use Types Packs/Day Years Used Date Smoking Tobacco: Never Assessed Comments Unknown Sex and Gender Information Value Date Recorded Sex Assigned at Not on file Legal Sex Female 4:15 AM REFRIGERATOR REPAIRMAN Gender Identity Not on file Sexual Orientation Not on file documented as of this encounter Plan of Treatment Not on file documented as of this encounter Visit Diagnoses Diagnosis Malignant neoplasm of upper-outer quadrant of female breast (CMS/HCC)- Primary Malignant neoplasm of upper-outer quadrant of female breast documented in this encounter Care Teams Licensed Sales Assistant Relationship Specialty Start Date End Date David Resendiz MD [address] [facility] 1 [place] [address] PCP - General 01/05/09 documented as of this encounter
--- OUTSIDE RECORDS SUMMARY | 2025-02-04 05:02 | XMS_ITS | Encounter Summary ---
Author Organization [facility] Address [address] [place] [address] Care Team Providers Care Application Dba Name Role Phone David Resendiz MD Primary Care Provider [phone] Encounter Details Date Type Department Care Team (Latest Contact Info) Description 05/02/2005 Outpatient Historical [facility] Nick Handy MD [address] [place] [address] Mammographic Microcalcification (Primary Dx) Social History Tobacco Use Types Packs/Day Years Used Date Smoking Tobacco: Never Assessed Comments Unknown Sex and Gender Information Value Date Recorded Sex Assigned at Not on file 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
--- OUTSIDE RECORDS SUMMARY | 2025-02-04 05:02 | XMS_ITS | Encounter Summary ---
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) Social History Tobacco Use Types Packs/Day Years Used Date Smoking Tobacco: Never Assessed Comments Unknown Sex and Gender Information Value Date Recorded Sex Assigned at Not on file 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
--- OUTSIDE RECORDS SUMMARY | 2025-02-04 05:02 | XMS_ITS | Encounter Summary ---
Author Organization [facility] Address [address] [place] [address] Care Team Providers Care Ada Accommodation Consultant Name Role Phone David Resendiz MD Primary Care Provider [phone] Encounter Details Date Type Department Care Team (Late st Contact Info) Description 05/02/2005 Outpatient Historical [facility] [address] [facility] [address] [place] [address] Bryanna Diaz MD NO ADDRESS ON FILE Other Sign and Symptom in Breast (Primary Dx) Social History Tobacco Use Types Packs/Day Years Used Date Smoking Tobacco: Never Assessed Comments Unknown Sex and Gender Information Value Date Recorded Sex Assigned at Not on file 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
--- OUTSIDE RECORDS SUMMARY | 2025-02-04 05:02 | XMS_ITS | Encounter Summary ---
Author Organization [facility] Address [address] [place] [address] Care Team Providers Care Metalsmith Name Role Phone David Resendiz MD Primary Care Provider Encounter Details Date Type Department Care Team (Late st Contact Info) Description 06/23/2006 Outpatient Historical [facility] Gen Spec Surg [place] [address] [facility] [address] [place] [address] Jose Ramirez MD NO ADDRESS ON FILE Malignant Neoplasm of Breast (Female), Unspecified Site (CMS/HCC) (Primary Dx); Follow-Up Examination, Following Unspecified Surgery Social History Tobacco Use Types Packs/Day Years Used Date Smoking Tobacco: Never Assessed Comments Unknown Sex and Gender Information Value Date Recorded Sex Assigned at Not on file 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
--- OUTSIDE RECORDS SUMMARY | 2025-02-04 05:02 | XMS_ITS | Encounter Summary ---
Author Organization [facility] Address [address] [place] [address] Care Team Providers Care Extractor Machine Operator Name Role Phone David Resendiz MD Primary Care Provider [phone] Encounter Details Date Type Department Care Team (Latest Contact Info) Description 04/18/2005 Outpatient Historical [facility] [address] [facility] [address] [place] [address] Nick Handy MD [address] [facility] [address] [place] [address] Malignant Neoplasm of Breast (Female), Unspecified Site (CMS/HCC) (Primary Dx) Social History Tobacco Use Types Packs/Day Years Used Date Smoking Tobacco: Never Assessed Comments Unknown Sex and Gender Information Value Date Recorded Sex Assigned at Not on file 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
--- OUTSIDE RECORDS SUMMARY | 2025-02-04 05:02 | XMS_ITS | Encounter Summary ---
Author Organization [facility] Address [address] [place] [address] Care Team Providers Care Back Pad Inspector Name Role Phone David Resendiz MD Primary Care Provider [phone] Encounter Details Date Type Department Care Team (Late st Contact Info) Description 06/30/2006 Outpatient Historical [facility] Gen Spec Surg [place] [address] [place] [address] Jose Ramirez MD NO ADDRESS ON FILE CA in Situ Breast (Primary Dx); Benign Joshua Lymph Nodes; Follow-Up Examination, Following Unspecified Surgery Social History Tobacco Use Types Packs/Day Years Used Date Smoking Tobacco: Never Assessed Comments Unknown Sex and Gender Information Value Date Recorded Sex Assigned at Not on file Legal Sex Female 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
--- OUTSIDE RECORDS SUMMARY | 2025-02-04 05:02 | XMS_ITS | Patient Health Record ---
Author Organization [facility] Address [address] [place] [address] Care Team Providers Care Plate Slitter And Inspector Name Role Phone Martín MEDINA, David Primary Care Provider Francie Weldon [phone] Allergies Allergen (clinical drug ingredient) Drug/Non Drug [...] Coverage End Date [place] [address] [address] [place] [address] [id number] Anish Dockery Self - patient is the insured [employer] [address] [address] [place] [address] [id number] Anish Dockery Self - patient is the insured
[2025-02-04 05:09] LABS: Hematocrit 41.0 % (36-47); Hemoglobin 13.20 g/dL (11.27-16.99); Mean Corpuscular HGB Conc 32.2 g/dL (30-55); Mean Corpuscular Hemoglobin 30.6 pg (27-33); Mean Corpuscular Volume 94.9 fl (85-98); Nucleated Red Blood Cells % 0 %; Platelet Count 169 10^3/cmm (157-399); Red Blood Count 4.32 10^6/uL (3.85-5.65); White Blood Count 6.11 10^3/uL (3.29-11.43)
[2025-02-04 05:11] LABS: INR 1.07 (0.8-1.2); Prothrombin Time 14.60 SECONDS (12.1-14.9)
[2025-02-04 05:12] LABS: Partial Thromboplastin Time 27.3 SECONDS (23.9-36.7)
[2025-02-04 05:18] LABS: Alanine Aminotransferase 14 U/L (0-33); Albumin Level 3.8 g/dL (3.5-5.2); Alkaline Phosphatase 92 U/L (35-105); Anion Gap 14.5 (5-19); Aspartate Amino Transferase 24 U/L (0-32); Blood Urea Nitrogen 21 mg/dL (8-23); Calcium 9.3 mg/dL (8.5-10.5); Carbon Dioxide 26 mmol/L (22-29); Chloride 105 mmol/L (98-107); Globulin 3.1 g/dL (1.3-4.6); Glucose 105 mg/dL (65-115); Magnesium 2.1 mg/dL (1.7-2.3); Osmolality Calculated 297 mOsm/kg (285-295); Potassium 3.5 mmol/L (3.5-5.1); Sodium 142 mmol/L (136-145); Total Protein 6.9 g/dL (6.6-8.7)
[2025-02-04 05:35] LABS: Glucose Urine UA Negative (Normal); Nitrate Urine Negative (Negative); Specific Gravity, Urine 1.023 (1.005-1.030)
[2025-02-04] MEDS: LORazepam 2 mg/mL INJ 1 mL 0.5 MG IVP (05:35)
[2025-02-04 05:37] VITALS: BP 139/81; PULSE 67; O2SAT 100
[2025-02-04 05:39] LABS: Add Urine Microscopic? YES
--- NOTE | 2025-02-04 05:45 | ED_ITS ---
HPI - Dizziness 2 General: Chief Complaint: Dizziness Stated Complaint: dizzy, vertigo, worsening since Monday Time Seen by Provider: 02/04/25 04:49 History of Present Illness: HPI Narrative: Patient is an 79-year-old female who presents with acute onset vertigo. She reports that she began experiencing dizzy spells on Monday but was still able to ambulate and perform activities of daily living. The patient describes true vertigo with room-spinning sensation. This morning, symptoms significantly worsened to the point where she was unable to get out of bed due to severe dizziness, anxiety, and feeling wobbly with fear of falling. She denies any falls. She reports experiencing similar but milder episodes in the past where she would need to sit for a few minutes after getting up before continuing activities. The patient also mentions a chronic sensation of a knot inside her ear that has been present forever but has never been evaluated. She denies headache, visual disturbances, weakness, speech difficulties, fever, vomiting, or chest pain. 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 Related Data Home Medications ?Medication ?Instructions ?Recorded ?Confirmed levothyroxine 100 mcg tablet 07/06/19 05/19/22 (Synthroid) losartan 100 mg tablet 07/06/19 05/19/22 cholecalciferol (vitamin D3) 50 50 mcg PO DAILY 05/19/22 mcg (2,000 unit) capsule hydrochlorothiazide 12.5 mg tablet 12.5 mg PO DAILY 05/19/22 levothyroxine 112 mcg capsule 112 mcg PO .TAKES ON Mon05/19/22 05/19/22 Previous Rx's ?Medication ?Instructions ?Recorded hydroxyzine HCl 25 mg tablet 25 mg PO QID PRN prn anxi ety #20 05/11/20 tabs ondansetron 4 mg disintegrating 4 mg PO Q8H PRN nausea and 08/16/22 tablet vomiting #15 tabs ondansetron 4 mg disintegrating 4 mg PO Q6H PRN nausea and 02/12/23 tablet vomiting #14 tabs lorazepam 0.5 mg tablet (Ativan) 0.5 mg PO Q8H PRN diz ziness or 02/04/25 vertigo #7 tabs Allergies Allergy/AdvReac Type Severity Reaction Status Date / Time Barbiturates Allergy Unknown Unknown Verified 05/19/22 12:55 clindamycin Allergy Unknown Unknown Verified 05/19/22 12:55 paroxetine (From Paxil) Allergy Unknown Unknown Verified 05/19/22 12:55 Sulfa (Sulfonamide Allergy Unknown Unknown Verified 05/19/22 12:55 Antibiotics) ciprofloxacin (From Cipro) Allergy rash Verified 05/19/22 12:55 hydromorphone Allergy ADR/ALGY-Hy Verified 05/19/22 12:55 potension Iodinated Contrast Media Allergy Unknown Verified 05/19/22 12:55 PFSH ED 2 PFSH: Medical History (Updated 02/04/25 @ 05:57 by Jared Crawford DO) Recurrent UTI HTN (hypertension) Breast cancer Thyroid disorder Chronic cystitis Surgical History Hx of bilateral mastectomy Hx of appendectomy Hx of thyroidectomy Hx of cholecystectomy Family History Mother , AT AGE 91 Diabetes Father , AT AGE 61 CAD (coronary artery disease) Other Cancer Social History Smoking and tobacco/nicotine status: never used tobacco/nicotine Alcohol intake: never Adopted: No Caregiver/support person: No Lives independently: No Household members: spouse Marital status: Current occupational status: retired Physical Exam 2 Const: COMMON NORMALS: no acute distress GENERAL APPEARANCE: cooperative, anxious and frail appearing (Mildly); not ill appearing HENMT: COMMON NORMALS: normocephalic, atraumatic and Normal external nose present HEAD & SCALP: normocephalic and atraumatic FACE & SINUS: normal facial exam and face symmetric NOSE: Normal external nose present Eye: COMMON NORMALS: Equal, round and reactive pupils present and EOMs intact bilaterally PUPIL: Yes Equal, round and reactive pupils present Neck/C-Spine: GENERAL: Yes trachea midline Chest: CHEST: Yes Symmetrical chest wall rise Resp: COMMON NORMALS: normal respiratory effort, No retractions, No use of accessory muscles and clear to auscultation bilaterally AUSCULTATION: clear to auscultation bilaterally Cardio: COMMON NORMALS: regular rate and regular rhythm RATE: regular rate RHYTHM: regular rhythm GI: COMMON NORMALS: Normal to inspection, nondistended, normoactive bowel sounds present Extremity: COMMON NORMALS: no pedal edema Neuro: SASCHA COMA SCALE: document GCS findings [place] coma scale eye opening: Spontaneous Sascha coma scale verbal response: Orientated Sascha coma scale motor response: Obey commands [place] coma scale total score: 15 S ENSORY EXAM: Yes extremities (intact) Psych: COMMON NORMALS: speech normal SPEECH: Yes normal speech Skin: COMMON NORMALS: no rashes or lesions noted GENERAL SKIN EXAM: no rashes or lesions noted Course 2 Vital Signs: Vital signs: Vital Signs Temperature 97.6 F 02/04/25 04:53 Pulse Rate 62 02/04/25 07:28 Respiratory Rate 18 02/04/25 04:53 Blood Pressure 120/58 02/04/25 07:28 Pulse Oximetry 98 02/04/25 07:28 Oxygen Delivery Me thod Room Air 02/04/25 06:30 MDM - Dizziness Medical Decision Making NIH scale 0. Vital signs are stable. She has ambulated well in the emergency department following administration of meclizine and Ativan. Head CT is negative. CBC BMP are normal. Urinalysis is equivocal. Liver enzymes are normal. She is stable for discharge. She will return for any new or worsening symptoms. Short course of Ativan for vertigo Lab Data 02/04/25 04:35 02/04/25 04:[address] 02/04/25 04:59 IMPRESSION: No acute intracranial abnormality. Laboratory Results WBC 6.11 10^3/uL (3.29-11.43) 02/04/25 04:35 RBC 4.32 10^6/uL (3.85-5.65) 02/04/25 04:35 Hgb 13.20 g/dL (11.27-16.99) 02/04/25 04:35 Hct 41.0 % (36-47) 02/04/25 04:35 MCV 94.9 fl (85-98) 02/04/25 04:35 MCH 30.6 pg (27-33) 02/04/25 04:35 MCHC 32.2 g/dL (30-55) 02/04/25 04:35 RDW 13.5 % (12.1-15.1) 02/04/25 04:35 Plt Count 169 10^3/cmm (157-399) 02/04/25 04:35 MPV 11.2 fL (7.4-10.4) H 02/04/25 04:35 Neut % (Auto) 30.3 % 02/04/25 04:35 Lymph % (Auto) 55.0 % 02/04/25 04:35 Elk % (Auto) 11.5 % 02/04/25 04:35 Eos % (Auto) 2.8 % 02/04/25 04:35 Baso % (Auto) 0.2 % 02/04/25 04:35 Neut # (Auto) 1.86 10^3/uL (1.8-7.7) 02/04/25 04:35 Lymph # (Auto) 3.4 10^3/uL (0.8-4.8) 02/04/25 04:35 [place]k # (Auto) 0.7 10^3/uL (0.2-0.9) 02/04/25 04:35 Eos # (Auto) 0.2 10^3/uL (0.0-0.8) 02/04/25 04:35 Baso # (Auto) 0.0 10^3/uL (0.0-0.1) 02/04/25 04:35 Nucleated RBC % (auto) 0 % 02/04/25 04:35 Nucleated RBCs # 0.0 /100WBC 02/04/25 04:35 PT 14.60 SECONDS (12.1-14.9) 02/04/25 04:35 INR 1.07 (0.8-1.2) 02/04/25 04:35 APTT 27.3 SECONDS (23.9-36.7) 02/04/25 04:35 Sodium 142 mmol/L (136-145) 02/04/25 04:35 Potassium 3.5 mmol/L (3.5-5.1) 02/04/25 04:35 Chloride 105 mmol/L (98-107) 02/04/25 04:35 Carbon Dioxide 26 mmol/L (22-29) 02/04/25 04:35 Anion Gap 14.5 (5-19) 02/04/25 04:35 BUN 21 mg/dL (8-23) 02/04/25 04:35 Creatinine 0.8 mg/dL (0.5-0.9) 02/04/25 04:35 GFR Calculation Not Reportable 02/04/25 04:35 Glucose 105 mg/dL (65-115) 02/04/25 04:35 Calculated Osmolality 297 mOsm/kg (285-295) H 02/04/25 04:35 Calcium 9.3 mg/dL (8.5-10.5) 02/04/25 04:35 Magnesium 2.1 mg/dL (1.7-2.3) 02/04/25 04:35 Total Bilirubin 1.1 mg/dL (0.15-1.2) 02/04/25 04:35 AST 24 U/L (0-32) 02/04/25 04:35 ALT 14 U/L (0-33) 02/04/25 04:35 Alkaline Phosphatase 92 U/L (35-105) 02/04/25 04:35 Total Protein 6.9 g/dL (6.6-8.7) 02/04/25 04:35 Albumin 3.8 g/dL (3.5-5.2) 02/04/25 04:35 Globulin 3.1 g/dL (1.3-4.6) 02/04/25 04:35 Urine Color Yellow (Yellow) 02/04/25 05:17 Urine Appearance Clear (CLEAR) 02/04/25 05:17 Urine pH 5.5 (5-7) 02/04/25 05:17 Ur Specific [place] 1.023 (1.005-1.030) 02/04/25 05:17 Urine Protein Negative (Negative) 02/04/25 05:17 Urine Glucose (UA) Negative (Normal) 02/04/25 05:17 Urine Ketones Negative (Negative) 02/04/25 05:17 Urine Blood Negative (Negative) 02/04/25 05:17 Urine Nitrate Negative (Negative) 02/04/25 05:17 Urine Bilirubin Negative (Negative) 02/04/25 05:17 Urine Urobilinogen 1.0 mg/dL (Negative) 02/04/25 05:17 Ur Leukocyte Esterase 1+ (Negative) A 02/04/25 05:17 Urine RBC 0-2 /hpf (0-2) 02/04/25 05:17 Urine WBC 11-20 /hpf (0-5) H 02/04/25 05:17 Ur Squamous Epith Cells 0-5 /hpf (0-5) 02/04/25 05:17 Amorphous Sediment Not Reportable 02/04/25 05:17 Urine Bacteria None seen /hpf (NONE) 02/04/25 05:17 Hyaline Casts 0.40 /lpf 02/04/25 05:17 XR interpretation done by ED provider, pending radiology final review EKG Data EKG 1: Interpretation: EKG time 0502, read 0505 shows sinus rhythm rate 70, mild left axis. Left ventricular hypertrophy criteria met. QTc is 406. Other intervals are normal. No ST-T wave changes. Discharge Plan Discharge Patient Disposition: Home Clinical Impression: Benign paroxysmal positional vertigo Condition: Stable Prescriptions: New lorazepam [Ativan] 0.5 mg tablet 0.5 mg PO Q8H PRN (Reason: dizziness or vertigo) Qty: 7 0RF No Action cholecalciferol (vitamin D3) 50 mcg (2,000 unit) capsule 50 mcg PO DAILY hydrochlorothiazide 12.5 mg tablet 12.5 mg PO DAILY levothyroxine 112 mcg capsule 112 mcg PO .TAKES ON MONDAY losartan 100 mg tablet Synthroid 100 mcg tablet hydroxyzine HCl 25 mg tablet 25 mg PO QID PRN (Reason: prn anxiety) Qty: 20 0RF ondansetron 4 mg tablet,disintegrating 4 mg PO Q6H PRN (Reason: nausea and vomiting) Qty: 14 0RF ondansetron 4 mg tablet,disintegrating 4 mg PO Q8H PRN (Reason: nausea and vomiting) Qty: 15 0RF Discharge Orders: Discharge ED (Routine); Ordered 02/04/25 Ordered By: Jared Crawford Referrals: David Resendiz MD [Primary Care Provider, Family Practice] - 1-3 days Patient Instructions: Vertigo (ED), Opioid Safety, Pain Management, Patient Portal & Anatoliy Instructions Activity Restrictions/Additional Instructions: Take medication as directed. Do not take the medication if you are not dizzy return for worsening dizziness, trouble with weakness, trouble with speech or vision, any other concerning symptoms. See your doctor this week. Call later today for a follow-up appointment Print Language: Citizen [place] Coding Level of Care Code ED Emergency Preparedness Coordinator for Chg Fwd NIH stroke score NIHSS Level Of Consciousness - 1a: 0 Level Of Consciousness Questions - 1b: Both Correct Level Of Consciousness Commands - 1c: Both Correct Best Gaze - 2: Normal Visual [place] - 3: No Visual Loss Facial Palsy - 4: Normal Motor Arm Right - 5: No Drift Motor Arm Left - 5: No Drift Motor Leg Right - 6: No Drift Motor Leg Left - 6: No Drift Limb Ataxia - 7: Absent Sensory - 8: Normal Best Language - 9: No Aphasia Dysarthia - 10: Normal Extinction And Inattention - 11: 0 Score Total Score: 0
[2025-02-04 06:00] VITALS: BP 116/87; PULSE 67; O2SAT 100
[2025-02-04 06:30] VITALS: BP 113/63; PULSE 65; O2SAT 93
[2025-02-04 07:28] VITALS: BP 120/58; PULSE 62; O2SAT 98
== END 2025-02-04 07:29 | disposition home or self-care (01) ==
PROVIDERS: Emergency Provider Emergency Medicine; PCP Family Medicine
DX: H81.10 Benign paroxysmal vertigo, unspecified ear (principal); I10 Essential (primary) hypertension; Z85.3 Personal history of malignant neoplasm of breast
CPT/HCPCS: 70450; 80053; 81001; 83735; 85025; 85610; 85730; 93005; 96361; 96374; 96375; 96376; 99285; J2060; J8597